=== PATIENT | female | born 1940 | race Caucasian/White ===

== ENCOUNTER 2020-07-22 17:54 | Inpatient (IN) | payer MEDICARE, OTHER ==
[2020-07-22] MEDS ORDERED: Metoprolol Tartrate 5 MG/5 ML SDV IVPUSH ONE ×3 (18:31→19:17)
[2020-07-22] MEDS: Sodium Chloride 0.9% 10 ML Syringe FLUSH PRN ×3 (18:44→19:34)
--- NOTE | 2020-07-22 18:45 | EDM.PDOC ---
ED HPI GENERAL MEDICAL PROBLEM - General Chief Complaint: General Stated Complaint: WEAK,DIZZY Time Seen by Provider: 07/22/20 18:25 Source of Information: Reports: Patient. Denies: Old Records History Limitations: Reports: Other (no old records, not a great historian). Denies: No Limitations - History of Present Illness INITIAL COMMENTS - FREE TEXT/NARRATIVE: 80 yo female here with a complaint of weak and dizzy. Has been feeling this way for about 3 days. No chest pain. Mild SOB and sweating at times. Denies a hx of afib. Is on no meds. Has not seen a doctor in yrs. Here with her from [facility]. Onset: Gradual Onset Date: 07/19/20 Duration: Day(s): (3), Constant Location: Reports: Generalized Quality: Reports: Other (no pain reported) Severity: Moderate Improves with: Reports: Rest Worsens with: Reports: Other (exertion) Context: Reports: Other (See HPI) Associated Symptoms: Reports: Diaphoresis (at times), Malaise, Shortness of Breath (at times), Weakness (generalized). 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 ED ROS GENERAL - Review of Systems Review Of Systems: See Below Constitutional: Reports: Malaise, Weakness, Diaphoresis (at times) HEENT: Reports: No Symptoms Respiratory: Reports: Shortness of Breath (at times). Denies: Wheezing, Pleuritic Chest Pain, Cough, Sputum, Hemoptysis Cardiovascular: Reports: Palpitations GI/Abdominal: Reports: No Symptoms : Reports: No Symptoms Musculoskeletal: Reports: No Symptoms Skin: Reports: No Symptoms Neurological: Reports: No Symptoms Psychiatric: Reports: No Symptoms ED EXAM, GENERAL - Physical Exam Exam: See Below Exam Limited By: No Limitations General Appearance: Alert, WD/WN, Mild Distress, Obese Eye Exam: Bilateral Eye: Normal Inspection Ears: Normal External Exam, Normal Canal, Hearing Grossly Normal Ear Exam: Bilateral Ear: Auricle Normal, Canal Normal Nose: Normal Inspection, No Blood Throat/Mouth: Normal Inspection, Normal Lips, Normal Oropharynx, Normal Voice, No Airway Compromise Head: Atraumatic, Normocephalic Neck: Normal Inspection Respiratory/Chest: No Respiratory Distress, Lungs Clear, Normal Breath Sounds, No Accessory Muscle Use Cardiovascular: No Edema, Tachycardia, Irregularly Irregular GI/Abdominal: Normal Bowel Sounds, Soft, Non-Tender, No Distention, Other (obese) Back Exam: Normal Inspection. No: CVA Tenderness (R), CVA Tenderness (L) Extremities: Normal Inspection, Normal Range of Motion, Non-Tender, No Pedal Edema. No: Pedal Edema Neurological: Alert, Oriented, CN II-XII Intact, Normal Cognition, No Motor/Sensory Deficits Psychiatric: Normal Affect, Normal Mood Skin Exam: Warm, Dry, Intact, Normal Color, No Rash #1 Interpretation EKG Date: 07/22/20 Time: 18:30 Rhythm: A-Fib Rate (Beats/Min): 148 [place]: Normal P-Wave: Absent QRS: Wide ST-T: Depressed QT: Normal Comparison: NA - No Prior EKG Course - Vital Signs Text/Narrative:: Dr. Jason called @ 1935h Last Recorded V/S: Last Vital Signs Temp 36.0 C L 07/22/20 18:20 Pulse 127 H 07/22/20 19:34 Resp 20 07/22/20 19:05 BP 105/61 07/22/20 19:34 Pulse Ox 94 L 07/22/20 19:05 - Orders/Labs/Meds Orders: Active Orders 24 hr Category Date Time Status Cardiac Monitoring [RC] .As Directed Care 07/22/20 18:22 Active EKG Documentation Completion [RC] ASDIRECTED Care 07/22/20 18:23 Active Oxygen Therapy Adult [Oxygen Therapy, ED] [RC] Care 07/22/20 18:39 Active ASDIRECTED Chest 1V Frontal [CR] Stat Exams 07/22/20 18:41 Ordered CRP [C-REACTIVE PROTEIN] [CHEM] Stat Lab 07/22/20 19:36 Ordered UA W/MICROSCOPIC [URIN] Stat Lab 07/22/20 18:23 Ordered Sodium Chloride 0.9% [Normal Saline] 1,000 ml Med 07/22/20 19:30 Active IV ASDIRECTED Sodium Chloride 0.9% [Saline Flush] Med 07/22/20 18:23 Active 10 ml FLUSH ASDIRECTED PRN Saline Lock Insert [OM.PC] Routine Oth 07/22/20 18:23 Ordered EKG 12 Lead [EK] Routine Ther 07/22/20 18:23 Ordered Medication Orders Sodium Chloride (Normal Saline) 1,000 mls @ 250 mls/hr IV ASDIRECTED LEON Sodium Chloride (Sodium Chloride 0.9% 10 Ml Syringe) 10 ml FLUSH ASDIRECTED PRN PRN Reason: Keep Vein Open Last Admin: 07/22/20 19:18 Dose: 10 ml Documented by: Admin: 07/22/20 18:44 Dose: 10 ml Documented by: [email or web address] Labs: Laboratory Tests 07/22/20 07/22/20 07/22/20 Range/Units 18:45 18:45 18:45 WBC 16.0 H (4.5-11.0) K/uL RBC 4.99 (3.30-5.50) M/uL Hgb 14.9 (12.0-15.0) g/dL Hct 47.8 (36.0-48.0) % MCV 96 (80-98) fL MCH 30 (27-31) pg MCHC 31 L (32-36) % Plt Count 157 (150-400) K/uL D-Dimer, Quantitative (0.0-500.0) ng/mL Sodium 139 L (140-148) mmol/L Potassium 5.1 (3.6-5.2) mmol/L Chloride 101 (100-108) mmol/L Carbon Dioxide 20 L (21-32) mmol/L Anion Gap 23.1 H (5.0-14.0) mmol/L BUN 49 H (7-18) mg/dL Creatinine 1.5 H (0.6-1.0) mg/dL Est Cr Clr Drug Dosing 24.33 mL/min Estimated GFR (MDRD) 33 L (>60) Glucose 247 H (74-106) mg/dL Calcium 9.4 (8.5-10.1) mg/dL Troponin I 0.060 H* (0.000-0.056) ng/mL TSH, Ultra Sensitive 2.801 (0.358-3.740) uIU/mL 07/22/20 Range/Units 18:45 WBC (4.5-11.0) K/uL RBC (3.30-5.50) M/uL Hgb (12.0-15.0) g/dL Hct (36.0-48.0) % MCV (80-98) fL MCH (27-31) pg MCHC (32-36) % Plt Count (150-400) K/uL D-Dimer, Quantitative 6032.11 H (0.0-500.0) ng/mL Sodium (140-148) mmol/L Potassium (3.6-5.2) mmol/L Chloride (100-108) mmol/L Carbon Dioxide (21-32) mmol/L Anion Gap (5.0-14.0) mmol/L BUN (7-18) mg/dL Creatinine (0.6-1.0) mg/dL Est Cr Clr Drug Dosing mL/min Estimated GFR (MDRD) (>60) Glucose (74-106) mg/dL Calcium (8.5-10.1) mg/dL Troponin I (0.000-0.056) ng/mL TSH, Ultra Sensitive (0.358-3.740) uIU/mL Meds: Medications Generic Name Dose Route Start Last Admin Trade Name Freq PRN Reason Stop Dose Admin Sodium Chloride 1,000 mls @ 250 mls/hr 07/22/20 19:30 Normal Saline IV ASDIRECTED LEON Sodium Chloride 10 ml 07/22/20 18:23 07/22/20 19:34 Sodium Chloride 0.9% 10 Ml Syringe FLUSH 10 ml ASDIRECTED PRN Administration Keep Vein Open Discontinued Medications Generic Name Dose Route Start Last Admin Trade Name Freq PRN Reason Stop Dose Admin Aspirin 324 mg 07/22/20 18:48 07/22/20 18:58 Aspirin 81 Mg Tab.Chew PO 07/22/20 18:49 324 mg ONETIME ONE Administration Metoprolol Tartrate 5 mg 07/22/20 18:31 07/22/20 18:45 Metoprolol Tartrate 5 Mg/5 Ml Sdv IVPUSH 07/22/20 18:32 5 mg ONETIME ONE Administration Metoprolol Tartrate 5 mg 07/22/20 19:07 07/22/20 19:18 Metoprolol Tartrate 5 Mg/5 Ml Sdv IVPUSH 07/22/20 19:08 5 mg ONETIME ONE Administration Metoprolol Tartrate 50 mg 07/22/20 19:07 07/22/20 19:12 Metoprolol Tartrate 50 Mg Tab PO 07/22/20 19:08 50 mg ONETIME ONE Administration Metoprolol Tartrate 5 mg 07/22/20 19:17 07/22/20 19:34 Metoprolol Tartrate 5 Mg/5 Ml Sdv IVPUSH 07/22/20 19:18 5 mg ONETIME ONE Administration - Radiology Interpretation Free Text/Narrative:: CXR-neg Departure - Departure Time of Disposition: 19:50 Disposition: Admitted As Inpatient 65 Condition: Fair Clinical Impression: Atrial fibrillation with RVR, Elevated blood sugar Obesity Qualifiers: Obesity type: due to excess calories Obesity classification: adult class 3 (BMI >= 40) Serious obesity comorbidity presence: unspecified whether serious comorbidity present Body mass index: BMI 50.0-59.9 Qualified Code(s): E66.01 - Morbid (severe) obesity due to excess calories; Z68.43 - Body mass index [BMI] 50.0-59.9, adult CRF (chronic renal failure) Qualifiers: Chronic kidney disease stage: stage 3 (moderate) Chronic kidney disease stage 3 subtype: stage 3b (GFR 30-44) Qualified Code(s): N18.32 - Chronic kidney disease, stage 3b - Discharge Information *PRESCRIPTION DRUG MONITORING PROGRAM REVIEWED*: Not Applicable *COPY OF PRESCRIPTION DRUG MONITORING REPORT IN PATIENT NABEEL: Not Applicable Referrals: Dandre Vieira MD [Primary Care Provider] - Forms: ED Department Discharge Sepsis Event Note (ED) - Focused Exam Vital Signs: Vital Signs Temp Pulse Pulse Resp BP BP Pulse Ox 07/22/20 19:34 127 H 105/61 07/22/20 19:18 130 H 121/86 07/22/20 19:12 136 H 115/78 07/22/20 19:05 131 H 20 115/78 94 L 07/22/20 18:58 07/22/20 18:55 132 H 19 115/78 07/22/20 18:48 75 19 167/95 H 89 L 07/22/20 18:45 59 L 146 H 15 177/87 H 177/87 H 94 L 07/22/20 18:20 36.0 C L 136 H 16 164/85 H 92 L Pulse Ox 07/22/20 19:34 07/22/20 19:18 07/22/20 19:12 07/22/20 19:05 07/22/20 18:58 95 07/22/20 18:55 07/22/20 18:48 07/22/20 18:45 07/22/20 18:20 - My Orders Last 24 Hours: My Active Orders 07/22/20 18:22 Cardiac Monitoring [RC] .As Directed 07/22/20 18:23 EKG Documentation Completion [RC] ASDIRECTED UA W/MICROSCOPIC [URIN] Stat Sodium Chloride 0.9% [Saline Flush] 10 ml FLUSH ASDIRECTED PRN Saline Lock Insert [OM.PC] Routine EKG 12 Lead [EK] Routine 07/22/20 18:39 Oxygen Therapy Adult [Oxygen Therapy, ED] [RC] ASDIRECTED 07/22/20 18:41 Chest 1V Frontal [CR] Stat 07/22/20 19:30 Sodium Chloride 0.9% [Normal Saline] 1,000 ml IV ASDIRECTED 07/22/20 19:36 CRP [C-REACTIVE PROTEIN] [CHEM] Stat - Assessment/Plan Last 24 Hours: My Active Orders 07/22/20 18:22 Cardiac Monitoring [RC] .As Directed 07/22/20 18:23 EKG Documentation Completion [RC] ASDIRECTED UA W/MICROSCOPIC [URIN] Stat Sodium Chloride 0.9% [Saline Flush] 10 ml FLUSH ASDIRECTED PRN Saline Lock Insert [OM.PC] Routine EKG 12 Lead [EK] Routine 07/22/20 18:39 Oxygen Therapy Adult [Oxygen Therapy, ED] [RC] ASDIRECTED 07/22/20 18:41 Chest 1V Frontal [CR] Stat 07/22/20 19:30 Sodium Chloride 0.9% [Normal Saline] 1,000 ml IV ASDIRECTED 07/22/20 19:36 CRP [C-REACTIVE PROTEIN] [CHEM] Stat
[2020-07-22] MEDS ORDERED: Aspirin 81 MG Tab.Chew PO ONE (18:48)
[2020-07-22] MEDS ORDERED: Metoprolol Tartrate 50 MG Tab PO ONE (19:07)
[2020-07-22] MEDS ORDERED: Sodium Chloride 0.9% 1,000 ML IV SCH ×2 (19:30→21:24)
--- NOTE | 2020-07-22 19:49 | PCM.HP.2 ---
H&P History of Present Illness - General Date of Service: 07/22/20 Admit Problem/Dx: Admission Diagnosis/Problem Admission Diagnosis/Problem Atrial fibrillation with rapid ventricular response Source of Information: Patient, Family, Provider, RN Notes Reviewed History Limitations: Reports: No Limitations - History of Present Illness Initial Comments - Free Text/Narative: Ms. Stern is an 80-year-old woman who was admitted through the emergency department with weakness and lightheadedness secondary to atrial fibrillation with rapid ventricular response. She reports that she has not felt well over the past week and during that period of time has become progressively more weak with associated anorexia and some nausea. She has had no fevers chills or sweats. Denies any other symptoms of localized infection. Because of progressive symptoms she reported to the emergency department today and was found to be in atrial fibrillation with rapid ventricular response. She has received IV and oral metoprolol with some slowing of her heart rate, but she remains in atrial fibrillation. [place] any prior history of cardiac disease and really has not had much in the way of medical care for the past several years. Creatinine is mildly elevated and she is also noted to have a modest elevation in troponin level. 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 Social & Family History - Tobacco Use Tobacco Use Status *Q: Never Tobacco User - Caffeine Use Caffeine Use: Reports: Coffee - Recreational Drug Use Recreational Drug Use: No H&P Review of Systems - Review of Systems: Review Of Systems: See Below General: Reports: Malaise, Weakness, Fatigue, Decreased Appetite HEENT: Reports: No Symptoms Pulmonary: Reports: No Symptoms Cardiovascular: Reports: Lightheadedness. Denies: Chest Pain, Dyspnea on Exertion, Orthopnea, PND, Edema Gastrointestinal: Reports: No Symptoms Genitourinary: Reports: No Symptoms Musculoskeletal: Reports: No Symptoms Skin: Reports: No Symptoms Psychiatric: Reports: No Symptoms Neurological: Reports: No Symptoms Hematologic/Lymphatic: Reports: No Symptoms Immunologic: Reports: No Symptoms Exam - Exam Exam: See Below - Vital Signs Vital Signs: Last Vital Signs Temp 96.8 F L 07/22/20 18:20 Pulse 127 H 07/22/20 19:34 Resp 20 07/22/20 19:05 BP 105/61 07/22/20 19:34 Pulse Ox 94 L 07/22/20 19:05 Weight: 330 lb - Exam Quality Assessment: DVT Prophylaxis General: Alert, Oriented, Cooperative, Mild Distress HEENT: Conjunctiva Clear, Hearing Intact, Mucosa Moist & [place], Normal Nasal Septum, Posterior Pharynx Clear, Pupils Equal Neck: Supple, Trachea Midline, +2 Carotid Pulse wo Bruit Lungs: Clear to Auscultation, Normal Respiratory Effort Cardiovascular: Normal S1, Normal S2, Irregular Rhythm, Tachycardia, Other. No: Systolic Murmur, Diastolic Murmur GI/Abdominal Exam: Soft, Non-Tender, No Organomegaly Back Exam: Normal Inspection, Full Range of Motion Extremities: Non-Tender, Pedal Edema Skin: Warm, Dry, Intact Neurological: Cranial Nerves Intact, Strength Equal Bilateral, Normal Speech, Normal Tone, Sensation Intact. No: Focal Deficit Neuro Extensive - Mental Status: Alert, Oriented x3, Normal Mood/Affect, Normal Cognition, Memory Intact - Patient Data Lab Results Last 24 hrs: Laboratory Results - last 24 hr 07/22/20 07/22/20 07/22/20 Range/Units 18:45 18:45 18:45 WBC 16.0 H (4.5-11.0) K/uL RBC 4.99 (3.30-5.50) M/uL Hgb 14.9 (12.0-15.0) g/dL Hct 47.8 (36.0-48.0) % MCV 96 (80-98) fL MCH 30 (27-31) pg MCHC 31 L (32-36) % Plt Count 157 (150-400) K/uL D-Dimer, Quantitative (0.0-500.0) ng/mL Sodium 139 L (140-148) mmol/L Potassium 5.1 (3.6-5.2) mmol/L Chloride 101 (100-108) mmol/L Carbon Dioxide 20 L (21-32) mmol/L Anion Gap 23.1 H (5.0-14.0) mmol/L BUN 49 H (7-18) mg/dL Creatinine 1.5 H (0.6-1.0) mg/dL Est Cr Clr Drug Dosing 24.33 mL/min Estimated GFR (MDRD) 33 L (>60) Glucose 247 H (74-106) mg/dL Calcium 9.4 (8.5-10.1) mg/dL Troponin I 0.060 H* (0.000-0.056) ng/mL C-Reactive Protein (0.0-0.3) mg/dL TSH, Ultra Sensitive 2.801 (0.358-3.740) uIU/mL 07/22/20 07/22/20 Range/Units 18:45 18:45 WBC (4.5-11.0) K/uL RBC (3.30-5.50) M/uL Hgb (12.0-15.0) g/dL Hct (36.0-48.0) % MCV (80-98) fL MCH (27-31) pg MCHC (32-36) % Plt Count (150-400) K/uL D-Dimer, Quantitative 6032.11 H (0.0-500.0) ng/mL Sodium (140-148) mmol/L Potassium (3.6-5.2) mmol/L Chloride (100-108) mmol/L Carbon Dioxide (21-32) mmol/L Anion Gap (5.0-14.0) mmol/L BUN (7-18) mg/dL Creatinine (0.6-1.0) mg/dL Est Cr Clr Drug Dosing mL/min Estimated GFR (MDRD) (>60) Glucose (74-106) mg/dL Calcium (8.5-10.1) mg/dL Troponin I (0.000-0.056) ng/mL C-Reactive Protein 7.04 H (0.0-0.3) mg/dL TSH, Ultra Sensitive (0.358-3.740) uIU/mL Result Diagrams: 07/22/20 18:45 07/22/20 18:45 Sepsis Event Note - Evaluation Sepsis Screening Result: No Definite Risk - Focused Exam Vital Signs: Vital Signs Temp Pulse Pulse Resp BP BP Pulse Ox 07/22/20 19:34 127 H 105/61 07/22/20 19:18 130 H 121/86 07/22/20 19:12 136 H 115/78 07/22/20 19:05 131 H 20 115/78 94 L 07/22/20 18:58 07/22/20 18:55 132 H 19 115/78 07/22/20 18:48 75 19 167/95 H 89 L 07/22/20 18:45 59 L 146 H 15 177/87 H 177/87 H 94 L 07/22/20 18:20 96.8 F L 136 H 16 164/85 H 92 L Pulse Ox 07/22/20 19:34 07/22/20 19:18 07/22/20 19:12 07/22/20 19:05 07/22/20 18:58 95 07/22/20 18:55 07/22/20 18:48 07/22/20 18:45 07/22/20 18:20 *Q Meaningful Use (ADM) - VTE Risk Assess *Q Each Risk Factor Represents 1 Point: Obesity ( BMI > 25 kg/m2) Total Score 1 Point Risk Factors: 1 Each Risk Factor Represents 2 Points: None Total Score 2 Point Risk Factors: 0 Each Risk Factor Represents 3 Points: Age 75 Years or Greater Total Score 3 Point Risk Factors: 3 Each Risk Factor Represents 5 Points: None Total Score 5 Point Risk Factors: 0 Venous Thromboembolism Risk Factor Score *Q: 4 Problem List Initiated/Reviewed/Updated: Yes Orders Last 24hrs: Active Orders 24 hr Category Date Time Status Patient Status Manage Transfer [TRANSFER] Routine ADT 07/22/20 19:43 Ordered Cardiac Monitoring [RC] .As Directed Care 07/22/20 18:22 Active EKG Documentation Completion [RC] ASDIRECTED Care 07/22/20 18:23 Active Oxygen Therapy Adult [Oxygen Therapy, ED] [RC] Care 07/22/20 18:39 Active ASDIRECTED Chest 1V Frontal [CR] Stat Exams 07/22/20 18:41 Taken UA W/MICROSCOPIC [URIN] Stat Lab 07/22/20 18:23 Ordered Sodium Chloride 0.9% [Normal Saline] 1,000 ml Med 07/22/20 19:30 Active IV ASDIRECTED Sodium Chloride 0.9% [Saline Flush] Med 07/22/20 18:23 Active 10 ml FLUSH ASDIRECTED PRN Saline Lock Insert [OM.PC] Routine Oth 07/22/20 18:23 Ordered Resuscitation Status Routine Resus Stat 07/22/20 19:45 Ordered EKG 12 Lead [EK] Routine Ther 07/22/20 18:23 Ordered Medication Orders Sodium Chloride (Normal Saline) 1,000 mls @ 250 mls/hr IV ASDIRECTED LEON Last Admin: 07/22/20 19:49 Dose: 250 mls/hr Documented by: MARU Sodium Chloride (Sodium Chloride 0.9% 10 Ml Syringe) 10 ml FLUSH ASDIRECTED PRN PRN Reason: Keep Vein Open Last Admin: 07/22/20 19:34 Dose: 10 ml Documented by: Admin: 07/22/20 19:18 Dose: 10 ml Documented by: Admin: 07/22/20 18:44 Dose: 10 ml Documented by: [email or web address] Assessment/Plan Comment:: ASSESSMENT AND PLAN ATRIAL FIBRILLATION WITH RAPID VENTRICULAR RESPONSE-likely present several days. No indication of underlying factors except for elevated D-dimer. Denies prior history of cardiac disease. -Echocardiogram inpatient versus outpatient depending on availability. Calculated [id number] score of 3 -Metoprolol 25 mg p.o. every 6 hours, reassess in a.m. -Further discuss anticoagulation in a.m. -CT angiogram of the chest after hydration ELEVATED TROPONIN-likely demand ischemia in the setting of rapid heart rate for several days -Serial troponin levels ELEVATED CREATININE-Baseline creatinine unknown, likely that at least some of this elevation is secondary to dehydration and intravascular volume depletion. With recent history of decreased oral intake. -IV fluids for hydration -Closely monitor urine output and renal function MAINTENANCE ISSUES -DVT prophylaxis; Lovenox 40 mg subcu daily -GI prophylaxis; not indicated -Landin catheter; not indicated -Nutrition; regular diet -Nicotine dependence; not required CODE STATUS-FULL CODE ADMISSION STATUS-patient will be admitted to inpatient status, expect at least a 2 night hospital stay for evaluation and management of problems as outlined above. At the time of this admission I do not reasonably expected evaluation and management of this problem will require more than a 96 hour hospital stay. DISPOSITION-anticipate discharge to home after the hospital stay. PRIMARY CARE PROVIDER-Dr. Vieira - Mortality Measure Prognosis:: Good
[2020-07-22] MEDS ORDERED: Ondansetron 4 MG/2 ML SDV IV PRN (21:24)
[2020-07-22] MEDS ORDERED: Sodium Chloride 0.9% 10 ML Syringe FLUSH PRN (21:24)
[2020-07-22] MEDS ORDERED: Polyethylene Glycol 3350 Powder 17 GM Packet PO PRN (21:24)
[2020-07-22] MEDS ORDERED: Enoxaparin 30 MG/0.3 ML Syringe SUBCUT SCH (21:24)
[2020-07-22] MEDS ORDERED: Acetaminophen 325 MG Tab PO PRN (21:24)
[2020-07-22] MEDS ORDERED: Dimethicone 20%/Zinc Oxide 25% 56 GM Spray Bottle TOP PRN (23:38)
[2020-07-23] MEDS ORDERED: Metoprolol Tartrate 25 MG Tab PO SCH ×2 (01:00→08:00)
[2020-07-23] MEDS: Sodium Chloride 0.9% 1,000 ML IV SCH ×2 (01:12→09:27)
--- NOTE | 2020-07-23 09:05 | CR ---
CHEST: Portable 07/22/2020 at 7:36 PM CLINICAL HISTORY:Tachycardia, SOB COMPARISON:None FINDINGS: The heart is enlarged. Pulmonary vascularity is normal. No infiltrate effusion or pneumothorax is seen. Impression: Mild cardiomegaly No acute cardiopulmonary process
--- NOTE | 2020-07-23 09:38 | PCM.PN ---
- General Info Date of Service: 07/23/20 Subjective Update: Ms. Stern has experienced improvement since admission. She reports energy level is improved and appetite seems to be somewhat better. Heart rate has come down but is not yet within desired range with current management. Functional Status: Reports: Tolerating Diet, Urinating - Review of Systems General: Reports: Weakness, Fatigue. Denies: Fever, Chills Pulmonary: Reports: No Symptoms Cardiovascular: Reports: No Symptoms Gastrointestinal: Reports: No Symptoms - Patient Data Vitals - Most Recent: Last Vital Signs Temp 97 F 07/23/20 08:00 Pulse 99 07/23/20 08:00 Resp 17 07/23/20 08:00 BP 131/72 07/23/20 08:00 Pulse Ox 97 07/23/20 08:00 Weight - Most Recent: 244 lb I&O - Last 24 Hours: Intake & Output 07/22/20 07/23/20 07/23/20 22:59 06:59 14:59 Intake Total 2261 180 Balance 2261 180 Lab Results Last 24 Hours: Laboratory Results - last 24 hr 07/22/20 07/22/20 07/22/20 Range/Units 18:45 18:45 18:45 WBC 16.0 H (4.5-11.0) K/uL RBC 4.99 (3.30-5.50) M/uL Hgb 14.9 (12.0-15.0) g/dL Hct 47.8 (36.0-48.0) % MCV 96 (80-98) fL MCH 30 (27-31) pg MCHC 31 L (32-36) % Plt Count 157 (150-400) K/uL Neut % (Auto) (36-66) % Lymph % (Auto) (24-44) % [place] % (Auto) (2-6) % Eos % (Auto) (2-4) % Baso % (Auto) (0-1) % D-Dimer, Quantitative (0.0-500.0) ng/mL Sodium 139 L (140-148) mmol/L Potassium 5.1 (3.6-5.2) mmol/L Chloride 101 (100-108) mmol/L Carbon Dioxide 20 L (21-32) mmol/L Anion Gap 23.1 H (5.0-14.0) mmol/L BUN 49 H (7-18) mg/dL Creatinine 1.5 H (0.6-1.0) mg/dL Est Cr Clr Drug Dosing 24.33 mL/min Estimated GFR (MDRD) 33 L (>60) Glucose 247 H (74-106) mg/dL Calcium 9.4 (8.5-10.1) mg/dL Magnesium (1.8-2.4) mg/dL Troponin I 0.060 H* (0.000-0.056) ng/mL C-Reactive Protein (0.0-0.3) mg/dL TSH, Ultra Sensitive 2.801 (0.358-3.740) uIU/mL 07/22/20 07/22/20 07/22/20 Range/Units 18:45 18:45 23:03 WBC (4.5-11.0) K/uL RBC (3.30-5.50) M/uL Hgb (12.0-15.0) g/dL Hct (36.0-48.0) % MCV (80-98) fL MCH (27-31) pg MCHC (32-36) % Plt Count (150-400) K/uL Neut % (Auto) (36-66) % Lymph % (Auto) (24-44) % [place] % (Auto) (2-6) % Eos % (Auto) (2-4) % Baso % (Auto) (0-1) % D-Dimer, Quantitative 6032.11 H (0.0-500.0) ng/mL Sodium (140-148) mmol/L Potassium (3.6-5.2) mmol/L Chloride (100-108) mmol/L Carbon Dioxide (21-32) mmol/L Anion Gap (5.0-14.0) mmol/L BUN (7-18) mg/dL Creatinine (0.6-1.0) mg/dL Est Cr Clr Drug Dosing mL/min Estimated GFR (MDRD) (>60) Glucose (74-106) mg/dL Calcium (8.5-10.1) mg/dL Magnesium (1.8-2.4) mg/dL Troponin I 0.063 H* (0.000-0.056) ng/mL C-Reactive Protein 7.04 H (0.0-0.3) mg/dL TSH, Ultra Sensitive (0.358-3.740) uIU/mL 07/23/20 07/23/20 Range/Units 05:53 05:53 WBC 14.2 H (4.5-11.0) K/uL RBC 4.70 (3.30-5.50) M/uL Hgb 14.2 (12.0-15.0) g/dL Hct 45.2 (36.0-48.0) % MCV 96 (80-98) fL MCH 30 (27-31) pg MCHC 31 L (32-36) % Plt Count 140 L (150-400) K/uL Neut % (Auto) 74 H (36-66) % Lymph % (Auto) 14 L (24-44) % [place] % (Auto) 11 H (2-6) % Eos % (Auto) 1 L (2-4) % Baso % (Auto) 0 (0-1) % D-Dimer, Quantitative (0.0-500.0) ng/mL Sodium 139 L (140-148) mmol/L Potassium 5.4 H (3.6-5.2) mmol/L Chloride 105 (100-108) mmol/L Carbon Dioxide 21 (21-32) mmol/L Anion Gap 18.4 H (5.0-14.0) mmol/L BUN 51 H (7-18) mg/dL Creatinine 1.5 H (0.6-1.0) mg/dL Est Cr Clr Drug Dosing 25.93 mL/min Estimated GFR (MDRD) 33 L (>60) Glucose 201 H (74-106) mg/dL Calcium 9.3 (8.5-10.1) mg/dL Magnesium 2.4 (1.8-2.4) mg/dL Troponin I 0.066 H* (0.000-0.056) ng/mL C-Reactive Protein (0.0-0.3) mg/dL TSH, Ultra Sensitive (0.358-3.740) uIU/mL Med Orders - Current: Current Medications Acetaminophen (Acetaminophen 325 Mg Tab) 650 mg PO Q4H PRN PRN Reason: Pain (Mild 1-3)/fever Last Admin: 07/22/20 22:20 Dose: 650 mg Documented by: Diltiazem HCl (Diltiazem Ir 30 Mg Tab) 30 mg PO Q6HR [facility] Dimethicone/Zinc Oxide (Dimethicone 20%/Zinc Oxide 25% 56 Gm [place] Bottle) 1 gm TOP ASDIRECTED PRN PRN Reason: Rash Last Admin: 07/23/20 02:52 Dose: 1 applic Documented by: Enoxaparin Sodium (Enoxaparin 30 Mg/0.3 Ml Syringe) 30 mg SUBCUT BEDTIME [facility] Metoprolol Succinate (Metoprolol Succinate 50 Mg Tab.Er) 100 mg PO DAILY [facility] Ondansetron HCl (Ondansetron 4 Mg/2 Ml Sdv) 4 mg IV Q4H PRN PRN Reason: Nausea/Vomiting Polyethylene Glycol (Polyethylene Glycol 3350 Powder 17 Gm Packet) 17 gm PO DAILY PRN PRN Reason: Constipation Sodium Chloride (Sodium Chloride 0.9% 10 Ml Syringe) 10 ml FLUSH ASDIRECTED PRN PRN Reason: Keep Vein Open Sodium Polystyrene Sulfonate (Sodium Polystyrene Sulfonate 15 Gm/60 Ml Susp 60 Ml Bot) 15 gm PO ONETIME ONE Stop: 07/23/20 09:46 Warfarin Sodium (Warfarin 5 Mg Tab) 5 mg PO ONETIME ONE Stop: 07/23/20 10:01 Discontinued Medications Aspirin (Aspirin 81 Mg Tab.Chew) 324 mg PO ONETIME ONE Stop: 07/22/20 18:49 Last Admin: 07/22/20 18:58 Dose: 324 mg Documented by: Enoxaparin Sodium (Enoxaparin 30 Mg/0.3 Ml Syringe) 30 mg SUBCUT DAILY [facility] Last Admin: 07/22/20 22:21 Dose: 30 mg Documented by: Sodium Chloride (Normal Saline) 1,000 mls @ 250 mls/hr IV ASDIRECTED [facility] Last Admin: 07/22/20 19:49 Dose: 250 mls/hr Documented by: Sodium Chloride (Normal Saline) 1,000 mls @ 125 mls/hr IV ASDIRECTED [facility] Last Admin: 07/23/20 09:27 Dose: 125 mls/hr Documented by: Sodium Chloride (Normal Saline) 1,000 mls @ 100 mls/hr IV ASDIRECTED [facility] Metoprolol Tartrate (Metoprolol Tartrate 5 Mg/5 Ml Sdv) 5 mg IVPUSH ONETIME ONE Stop: 07/22/20 18:32 Last Admin: 07/22/20 18:45 Dose: 5 mg Documented by: Metoprolol Tartrate (Metoprolol Tartrate 5 Mg/5 Ml Sdv) 5 mg IVPUSH ONETIME ONE Stop: 07/22/20 19:08 Last Admin: 07/22/20 19:18 Dose: 5 mg Documented by: Metoprolol Tartrate (Metoprolol Tartrate 50 Mg Tab) 50 mg PO ONETIME ONE Stop: 07/22/20 19:08 Last Admin: 07/22/20 19:12 Dose: 50 mg Documented by: Metoprolol Tartrate (Metoprolol Tartrate 5 Mg/5 Ml Sdv) 5 mg IVPUSH ONETIME ONE Stop: 07/22/20 19:18 Last Admin: 07/22/20 19:34 Dose: 5 mg Documented by: Metoprolol Tartrate (Metoprolol Tartrate 25 Mg Tab) 25 mg PO Q6H [facility] Last Admin: 07/23/20 00:14 Dose: 25 mg Documented by: Metoprolol Tartrate (Metoprolol Tartrate 25 Mg Tab) 25 mg PO Q6H [facility] Sodium Chloride (Sodium Chloride 0.9% 10 Ml Syringe) 10 ml FLUSH ASDIRECTED PRN PRN Reason: Keep Vein Open Last Admin: 07/22/20 19:34 Dose: 10 ml Documented by: - Exam Quality Assessment: DVT Prophylaxis General: Alert, Oriented, Cooperative, No Acute Distress Lungs: Clear to Auscultation, Normal Respiratory Effort Cardiovascular: No Murmurs, Irregular Rhythm, Tachycardia GI/Abdominal Exam: Soft, Non-Tender, No Organomegaly, No Distention Extremities: Non-Tender, Pedal Edema - Patient Data Lab Results Last 24 hrs: Laboratory Results - last 24 hr 07/22/20 07/22/20 07/22/20 Range/Units 18:45 18:45 18:45 WBC 16.0 H (4.5-11.0) K/uL RBC 4.99 (3.30-5.50) M/uL Hgb 14.9 (12.0-15.0) g/dL Hct 47.8 (36.0-48.0) % MCV 96 (80-98) fL MCH 30 (27-31) pg MCHC 31 L (32-36) % Plt Count 157 (150-400) K/uL Neut % (Auto) (36-66) % Lymph % (Auto) (24-44) % [place] % (Auto) (2-6) % Eos % (Auto) (2-4) % Baso % (Auto) (0-1) % D-Dimer, Quantitative (0.0-500.0) ng/mL Sodium 139 L (140-148) mmol/L Potassium 5.1 (3.6-5.2) mmol/L Chloride 101 (100-108) mmol/L Carbon Dioxide 20 L (21-32) mmol/L Anion Gap 23.1 H (5.0-14.0) mmol/L BUN 49 H (7-18) mg/dL Creatinine 1.5 H (0.6-1.0) mg/dL Est Cr Clr Drug Dosing 24.33 mL/min Estimated GFR (MDRD) 33 L (>60) Glucose 247 H (74-106) mg/dL Calcium 9.4 (8.5-10.1) mg/dL Magnesium (1.8-2.4) mg/dL Troponin I 0.060 H* (0.000-0.056) ng/mL C-Reactive Protein (0.0-0.3) mg/dL TSH, Ultra Sensitive 2.801 (0.358-3.740) uIU/mL 07/22/20 07/22/20 07/22/20 Range/Units 18:45 18:45 23:03 WBC (4.5-11.0) K/uL RBC (3.30-5.50) M/uL Hgb (12.0-15.0) g/dL Hct (36.0-48.0) % MCV (80-98) fL MCH (27-31) pg MCHC (32-36) % Plt Count (150-400) K/uL Neut % (Auto) (36-66) % Lymph % (Auto) (24-44) % [place] % (Auto) (2-6) % Eos % (Auto) (2-4) % Baso % (Auto) (0-1) % D-Dimer, Quantitative 6032.11 H (0.0-500.0) ng/mL Sodium (140-148) mmol/L Potassium (3.6-5.2) mmol/L Chloride (100-108) mmol/L Carbon Dioxide (21-32) mmol/L Anion Gap (5.0-14.0) mmol/L BUN (7-18) mg/dL Creatinine (0.6-1.0) mg/dL Est Cr Clr Drug Dosing mL/min Estimated GFR (MDRD) (>60) Glucose (74-106) mg/dL Calcium (8.5-10.1) mg/dL Magnesium (1.8-2.4) mg/dL Troponin I 0.063 H* (0.000-0.056) ng/mL C-Reactive Protein 7.04 H (0.0-0.3) mg/dL TSH, Ultra Sensitive (0.358-3.740) uIU/mL 07/23/20 07/23/20 Range/Units 05:53 05:53 WBC 14.2 H (4.5-11.0) K/uL RBC 4.70 (3.30-5.50) M/uL Hgb 14.2 (12.0-15.0) g/dL Hct 45.2 (36.0-48.0) % MCV 96 (80-98) fL MCH 30 (27-31) pg MCHC 31 L (32-36) % Plt Count 140 L (150-400) K/uL Neut % (Auto) 74 H (36-66) % Lymph % (Auto) 14 L (24-44) % [place] % (Auto) 11 H (2-6) % Eos % (Auto) 1 L (2-4) % Baso % (Auto) 0 (0-1) % D-Dimer, Quantitative (0.0-500.0) ng/mL Sodium 139 L (140-148) mmol/L Potassium 5.4 H (3.6-5.2) mmol/L Chloride 105 (100-108) mmol/L Carbon Dioxide 21 (21-32) mmol/L Anion Gap 18.4 H (5.0-14.0) mmol/L BUN 51 H (7-18) mg/dL Creatinine 1.5 H (0.6-1.0) mg/dL Est Cr Clr Drug Dosing 25.93 mL/min Estimated GFR (MDRD) 33 L (>60) Glucose 201 H (74-106) mg/dL Calcium 9.3 (8.5-10.1) mg/dL Magnesium 2.4 (1.8-2.4) mg/dL Troponin I 0.066 H* (0.000-0.056) ng/mL C-Reactive Protein (0.0-0.3) mg/dL TSH, Ultra Sensitive (0.358-3.740) uIU/mL Result Diagrams: 07/23/20 05:53 07/23/20 05:53 Sepsis Event Note - Evaluation Sepsis Screening Result: Severe Sepsis Risk - Focused Exam Vital Signs: Vital Signs Temp Pulse Pulse Resp BP BP Pulse Ox 07/23/20 08:00 97 F 99 17 131/72 97 07/23/20 06:00 21 H 123/68 98 07/23/20 04:00 18 115/70 100 07/23/20 02:00 18 104/71 98 07/23/20 00:14 89 105/66 07/23/20 00:00 19 94/70 99 07/22/20 23:30 17 102/85 99 07/22/20 22:00 16 122/76 93 L 07/22/20 21:51 97.0 F 17 137/84 97 - Problem List Review Problem List Initiated/Reviewed/Updated: Yes - My Orders Last 24 Hours: My Active Orders 07/22/20 Dinner Regular Diet [DIET] 07/22/20 19:45 Resuscitation Status Routine 07/22/20 21:24 Acetaminophen [TylenoL] 650 mg PO Q4H PRN Ondansetron [Zofran] 4 mg IV Q4H PRN Sodium Chloride 0.9% [Saline Flush] 10 ml FLUSH ASDIRECTED PRN polyethylene glycoL 3350 [MiraLAX] 17 gm PO DAILY PRN 07/22/20 21:24 Patient Status [ADT] Routine Ambulate [RC] QID Cardiac Monitoring [RC] Q6H Height and Weight [RC] DAILY Intake and Output [RC] QSHIFT Notify Provider Vital Signs [RC] ASDIRECTED Oxygen Therapy [RC] PRN Peripheral IV Care [RC] . DIRECTED Up With Assistance [RC] ASDIRECTED Up to Chair [RC] QID VTE/DVT Education [RC] Per Unit Routine Vital Signs [RC] Q2H Peripheral IV Insertion Adult [OM.PC] Routine 07/22/20 23:38 Dimethicone/Zinc Oxide [Rash Relief-Zinc Oxide [place]] 1 gm TOP ASDIRECTED PRN 07/23/20 09:26 INR,PT,PROTHROMBIN TIME [COAG] Stat Warfarin [Coumadin] 5 mg PO ONETIME ONE 07/23/20 09:28 Sodium Polystyrene Sulfonate [Kayexalate] 15 gm PO ONETIME ONE Convert IV to Saline Lock [OM.PC] Routine 07/23/20 09:30 Metoprolol Succinate [Toprol XL] 100 mg PO DAILY 07/23/20 10:00 Diltiazem IR [Cardizem] 30 mg PO Q6HR 07/23/20 21:00 Enoxaparin [Lovenox] 30 mg SUBCUT BEDTIME 07/24/20 05:00 BASIC METABOLIC PANEL,BMP [CHEM] Timed CBC WITH AUTO DIFF [HEME] Timed 07/24/20 05:11 INR,PT,PROTHROMBIN TIME [COAG] AM - Plan Plan:: ASSESSMENT AND PLAN ATRIAL FIBRILLATION WITH RAPID VENTRICULAR RESPONSE-likely present several days. No indication of underlying factors except for elevated D-dimer. Denies prior history of cardiac disease.Calculated [id number] score of 3. Rate has improved with current management, still not yet within desired range -Echocardiogram inpatient versus outpatient depending on availability. -Metoprolol XL 100 mg p.o. daily -Warfarin 5 mg p.o. today -CT angiogram of the chest after improvement in renal function ELEVATED TROPONIN-serial troponin levels stable ELEVATED CREATININE-Baseline creatinine unknown, likely that at least some of this elevation is secondary to dehydration and intravascular volume depletion. With recent history of decreased oral intake. Creatinine stable with hydration, but not significantly improved -Saline lock IV -Closely monitor urine output and renal function HYPERKALEMIA-likely secondary to renal insufficiency -Kayexalate 15 mg p.o. now -Reassess potassium level later today and in a.m. MAINTENANCE ISSUES -DVT prophylaxis; Lovenox 40 mg subcu daily -GI prophylaxis; not indicated -Land[place] catheter; not indicated -Nutrition; regular diet -Nicotine dependence; not required CODE STATUS-FULL CODE ADMISSION STATUS-patient will be admitted to inpatient status, expect at least a 2 night hospital stay for evaluation and management of problems as outlined above. At the time of this admission I do not reasonably expected evaluation and management of this problem will require more than a 96 hour hospital stay. DISPOSITION-anticipate discharge to home after the hospital stay. PRIMARY CARE PROVIDER-Dr. Vieira
[2020-07-23] MEDS ORDERED: Sodium Polystyrene Sulfonate 15 GM/60 ML Susp 60 ML Bot PO ONE (09:45)
[2020-07-23] MEDS: Metoprolol Succinate 50 MG Tab.ER PO SCH (09:54)
[2020-07-23] MEDS: Diltiazem IR 30 MG Tab PO SCH ×3 (09:55→21:05)
[2020-07-23] MEDS ORDERED: Warfarin 5 MG Tab PO ONE (10:00)
[2020-07-23] MEDS ORDERED: Enoxaparin 30 MG/0.3 ML Syringe SUBCUT SCH (21:00)
[2020-07-24] MEDS: Diltiazem IR 30 MG Tab PO SCH (04:16)
[2020-07-24] MEDS: Metoprolol Succinate 50 MG Tab.ER PO SCH (08:56)
[2020-07-24] MEDS: Diltiazem 120 MG Cap.CD PO SCH (08:56)
[2020-07-24] MEDS ORDERED: Warfarin 5 MG Tab PO ONE (09:00)
--- NOTE | 2020-07-24 14:18 | PCM.PN ---
- General Info Date of Service: 07/24/20 Subjective Update: Ms. Stern has been stable over the last 24 hours. She remains in atrial fibrillation, heart rate well controlled on current therapy with metoprolol and diltiazem. She remains fairly weak and requires assistance of 2 for transfers and ambulation. Functional Status: Reports: Tolerating Diet, Urinating - Review of Systems General: Reports: Weakness, Fatigue. Denies: Fever, Chills Pulmonary: Reports: No Symptoms Cardiovascular: Reports: No Symptoms Gastrointestinal: Reports: No Symptoms - Patient Data Vitals - Most Recent: Last Vital Signs Temp 97.1 F 07/24/20 08:00 Pulse 80 07/24/20 12:00 Resp 19 07/24/20 12:00 BP 121/73 07/24/20 12:00 Pulse Ox 20 L 07/24/20 12:00 Weight - Most Recent: 248 lb 4.8 oz I&O - Last 24 Hours: Intake & Output 07/23/20 07/24/20 07/24/20 22:59 06:59 14:59 Intake Total 90 600 650 Output Total 200 425 Balance 90 400 225 Lab Results Last 24 Hours: Laboratory Results - last 24 hr 07/23/20 07/23/20 07/24/20 Range/Units 14:48 17:20 05:15 WBC (4.5-11.0) K/uL RBC (3.30-5.50) M/uL Hgb (12.0-15.0) g/dL Hct (36.0-48.0) % MCV (80-98) fL MCH (27-31) pg MCHC (32-36) % Plt Count (150-400) K/uL Neut % (Auto) (36-66) % Lymph % (Auto) (24-44) % [place] % (Auto) (2-6) % Eos % (Auto) (2-4) % Baso % (Auto) (0-1) % PT 13.3 H (9.5-12.0) sec INR 1.23 H (0.80-1.20) Sodium (140-148) mmol/L Potassium 5.0 (3.6-5.2) mmol/L Chloride (100-108) mmol/L Carbon Dioxide (21-32) mmol/L Anion Gap (5.0-14.0) mmol/L BUN (7-18) mg/dL Creatinine (0.6-1.0) mg/dL Est Cr Clr Drug Dosing mL/min Estimated GFR (MDRD) (>60) Glucose (74-106) mg/dL Calcium (8.5-10.1) mg/dL Urine Color Yellow (YELLOW) Urine Appearance Slightly cloudy A (CLEAR) Urine pH 5.5 (5.0-8.0) Ur Specific [place] 1.025 (1.008-1.030) Urine Protein 100 H (NEGATIVE) mg/dL Urine Glucose (UA) Negative (NEGATIVE) mg/dL Urine Ketones Trace H (NEGATIVE) mg/dL Urine Occult Blood Negative (NEGATIVE) Urine Nitrite Negative (NEGATIVE) Urine Bilirubin Small H (NEGATIVE) Urine Urobilinogen 1.0 (0.2-1.0) EU/dL Ur Leukocyte Esterase Negative (NEGATIVE) Urine RBC 0-5 (0-5) Urine WBC 0-5 (0-5) Ur Epithelial Cells Rare Amorphous Sediment Not seen Urine Bacteria Rare Urine Mucus Rare 07/24/20 07/24/20 Range/Units 05:15 05:15 WBC 15.1 H (4.5-11.0) K/uL RBC 4.53 (3.30-5.50) M/uL Hgb 14.0 (12.0-15.0) g/dL Hct 43.4 (36.0-48.0) % MCV 96 (80-98) fL MCH 31 (27-31) pg MCHC 32 (32-36) % Plt Count 153 (150-400) K/uL Neut % (Auto) 81 H (36-66) % Lymph % (Auto) 9 L (24-44) % [place] % (Auto) 10 H (2-6) % Eos % (Auto) 1 L (2-4) % Baso % (Auto) 0 (0-1) % PT (9.5-12.0) sec INR (0.80-1.20) Sodium 143 (140-148) mmol/L Potassium 4.3 (3.6-5.2) mmol/L Chloride 106 (100-108) mmol/L Carbon Dioxide 21 (21-32) mmol/L Anion Gap 15.6 H (5.0-14.0) mmol/L BUN 45 H (7-18) mg/dL Creatinine 1.2 H (0.6-1.0) mg/dL Est Cr Clr Drug Dosing 32.50 mL/min Estimated GFR (MDRD) 43 L (>60) Glucose 196 H (74-106) mg/dL Calcium 8.8 (8.5-10.1) mg/dL Urine Color (YELLOW) Urine Appearance (CLEAR) Urine pH (5.0-8.0) Ur Specific [place] (1.008-1.030) Urine Protein (NEGATIVE) mg/dL Urine Glucose (UA) (NEGATIVE) mg/dL Urine Ketones (NEGATIVE) mg/dL Urine Occult Blood (NEGATIVE) Urine Nitrite (NEGATIVE) Urine Bilirubin (NEGATIVE) Urine Urobilinogen (0.2-1.0) EU/dL Ur Leukocyte Esterase (NEGATIVE) Urine RBC (0-5) Urine WBC (0-5) Ur Epithelial Cells Amorphous Sediment Urine Bacteria Urine Mucus Med Orders - Current: Current Medications Acetaminophen (Acetaminophen 325 Mg Tab) 650 mg PO Q4H PRN PRN Reason: Pain (Mild 1-3)/fever Last Admin: 07/22/20 22:20 Dose: 650 mg Documented by: Diltiazem HCl (Diltiazem 120 Mg Cap.Cd) 120 mg PO DAILY [facility] Last Admin: 07/24/20 08:56 Dose: 120 mg Documented by: Dimethicone/Zinc Oxide (Dimethicone 20%/Zinc Oxide 25% 56 Gm Veteran Bottle) 1 gm TOP ASDIRECTED PRN PRN Reason: Rash Last Admin: 07/23/20 02:52 Dose: 1 applic Documented by: Enoxaparin Sodium (Enoxaparin 40 Mg/0.4 Ml Syringe) 40 mg SUBCUT BEDTIME [facility] Metoprolol Succinate (Metoprolol Succinate 50 Mg Tab.Er) 100 mg PO DAILY [facility] Last Admin: 07/24/20 08:56 Dose: 100 mg Documented by: Ondansetron HCl (Ondansetron 4 Mg/2 Ml Sdv) 4 mg IV Q4H PRN PRN Reason: Nausea/Vomiting Polyethylene Glycol (Polyethylene Glycol 3350 Powder 17 Gm Packet) 17 gm PO DAILY PRN PRN Reason: Constipation Sodium Chloride (Sodium Chloride 0.9% 10 Ml Syringe) 10 ml FLUSH ASDIRECTED PRN PRN Reason: Keep Vein Open Discontinued Medications Aspirin (Aspirin 81 Mg Tab.Chew) 324 mg PO ONETIME ONE Stop: 07/22/20 18:49 Last Admin: 07/22/20 18:58 Dose: 324 mg Documented by: Diltiazem HCl (Diltiazem Ir 30 Mg Tab) 30 mg PO Q6HR [facility] Last Admin: 07/24/20 04:16 Dose: 30 mg Documented by: Enoxaparin Sodium (Enoxaparin 30 Mg/0.3 Ml Syringe) 30 mg SUBCUT DAILY [facility] Last Admin: 07/22/20 22:21 Dose: 30 mg Documented by: Enoxaparin Sodium (Enoxaparin 30 Mg/0.3 Ml Syringe) 30 mg SUBCUT BEDTIME [facility] Last Admin: 07/23/20 21:05 Dose: 30 mg Documented by: Sodium Chloride (Normal Saline) 1,000 mls @ 250 mls/hr IV ASDIRECTED [facility] Last Admin: 07/22/20 19:49 Dose: 250 mls/hr Documented by: Sodium Chloride (Normal Saline) 1,000 mls @ 125 mls/hr IV ASDIRECTED [facility] Last Admin: 07/23/20 09:27 Dose: 125 mls/hr Documented by: Sodium Chloride (Normal Saline) 1,000 mls @ 100 mls/hr IV ASDIRECTED [facility] Metoprolol Tartrate (Metoprolol Tartrate 5 Mg/5 Ml Sdv) 5 mg IVPUSH ONETIME ONE Stop: 07/22/20 18:32 Last Admin: 07/22/20 18:45 Dose: 5 mg Documented by: Metoprolol Tartrate (Metoprolol Tartrate 5 Mg/5 Ml Sdv) 5 mg IVPUSH ONETIME ONE Stop: 07/22/20 19:08 Last Admin: 07/22/20 19:18 Dose: 5 mg Documented by: Metoprolol Tartrate (Metoprolol Tartrate 50 Mg Tab) 50 mg PO ONETIME ONE Stop: 07/22/20 19:08 Last Admin: 07/22/20 19:12 Dose: 50 mg Documented by: Metoprolol Tartrate (Metoprolol Tartrate 5 Mg/5 Ml Sdv) 5 mg IVPUSH ONETIME ONE Stop: 07/22/20 19:18 Last Admin: 07/22/20 19:34 Dose: 5 mg Documented by: Metoprolol Tartrate (Metoprolol Tartrate 25 Mg Tab) 25 mg PO Q6H [facility] Last Admin: 07/23/20 00:14 Dose: 25 mg Documented by: Metoprolol Tartrate (Metoprolol Tartrate 25 Mg Tab) 25 mg PO Q6H [facility] Last Admin: 07/23/20 15:16 Dose: Not Given Documented by: Sodium Chloride (Sodium Chloride 0.9% 10 Ml Syringe) 10 ml FLUSH ASDIRECTED PRN PRN Reason: Keep Vein Open Last Admin: 07/22/20 19:34 Dose: 10 ml Documented by: Sodium Polystyrene Sulfonate (Sodium Polystyrene Sulfonate 15 Gm/60 Ml Susp 60 Ml Bot) 15 gm PO ONETIME ONE Stop: 07/23/20 09:46 Last Admin: 07/23/20 09:54 Dose: 15 gm Documented by: Warfarin Sodium (Warfarin 5 Mg Tab) 5 mg PO ONETIME ONE Stop: 07/23/20 10:01 Last Admin: 07/23/20 09:55 Dose: 5 mg Documented by: Warfarin Sodium (Warfarin 5 Mg Tab) 5 mg PO ONETIME ONE Stop: 07/24/20 09:01 Last Admin: 07/24/20 08:56 Dose: 5 mg Documented by: - Exam Quality Assessment: DVT Prophylaxis General: Alert, Cooperative, Mild Distress Lungs: Clear to Auscultation, Normal Respiratory Effort Cardiovascular: Regular Rate, No Murmurs, Irregular Rhythm GI/Abdominal Exam: Soft, Non-Tender, No Organomegaly, No Distention Extremities: Non-Tender, No Pedal Edema - Patient Data Lab Results Last 24 hrs: Laboratory Results - last 24 hr 07/23/20 07/23/20 07/24/20 Range/Units 14:48 17:20 05:15 WBC (4.5-11.0) K/uL RBC (3.30-5.50) M/uL Hgb (12.0-15.0) g/dL Hct (36.0-48.0) % MCV (80-98) fL MCH (27-31) pg MCHC (32-36) % Plt Count (150-400) K/uL Neut % (Auto) (36-66) % Lymph % (Auto) (24-44) % [place] % (Auto) (2-6) % Eos % (Auto) (2-4) % Baso % (Auto) (0-1) % PT 13.3 H (9.5-12.0) sec INR 1.23 H (0.80-1.20) Sodium (140-148) mmol/L Potassium 5.0 (3.6-5.2) mmol/L Chloride (100-108) mmol/L Carbon Dioxide (21-32) mmol/L Anion Gap (5.0-14.0) mmol/L BUN (7-18) mg/dL Creatinine (0.6-1.0) mg/dL Est Cr Clr Drug Dosing mL/min Estimated GFR (MDRD) (>60) Glucose (74-106) mg/dL Calcium (8.5-10.1) mg/dL Urine Color Yellow (YELLOW) Urine Appearance Slightly cloudy A (CLEAR) Urine pH 5.5 (5.0-8.0) Ur Specific [place] 1.025 (1.008-1.030) Urine Protein 100 H (NEGATIVE) mg/dL Urine Glucose (UA) Negative (NEGATIVE) mg/dL Urine Ketones Trace H (NEGATIVE) mg/dL Urine Occult Blood Negative (NEGATIVE) Urine Nitrite Negative (NEGATIVE) Urine Bilirubin Small H (NEGATIVE) Urine Urobilinogen 1.0 (0.2-1.0) EU/dL Ur Leukocyte Esterase Negative (NEGATIVE) Urine RBC 0-5 (0-5) Urine WBC 0-5 (0-5) Ur Epithelial Cells Rare Amorphous Sediment Not seen Urine Bacteria Rare Urine Mucus Rare 07/24/20 07/24/20 Range/Units 05:15 05:15 WBC 15.1 H (4.5-11.0) K/uL RBC 4.53 (3.30-5.50) M/uL Hgb 14.0 (12.0-15.0) g/dL Hct 43.4 (36.0-48.0) % MCV 96 (80-98) fL MCH 31 (27-31) pg MCHC 32 (32-36) % Plt Count 153 (150-400) K/uL Neut % (Auto) 81 H (36-66) % Lymph % (Auto) 9 L (24-44) % [place] % (Auto) 10 H (2-6) % Eos % (Auto) 1 L (2-4) % Baso % (Auto) 0 (0-1) % PT (9.5-12.0) sec INR (0.80-1.20) Sodium 143 (140-148) mmol/L Potassium 4.3 (3.6-5.2) mmol/L Chloride 106 (100-108) mmol/L Carbon Dioxide 21 (21-32) mmol/L Anion Gap 15.6 H (5.0-14.0) mmol/L BUN 45 H (7-18) mg/dL Creatinine 1.2 H (0.6-1.0) mg/dL Est Cr Clr Drug Dosing 32.50 mL/min Estimated GFR (MDRD) 43 L (>60) Glucose 196 H (74-106) mg/dL Calcium 8.8 (8.5-10.1) mg/dL Urine Color (YELLOW) Urine Appearance (CLEAR) Urine pH (5.0-8.0) Ur Specific [place] (1.008-1.030) Urine Protein (NEGATIVE) mg/dL Urine Glucose (UA) (NEGATIVE) mg/dL Urine Ketones (NEGATIVE) mg/dL Urine Occult Blood (NEGATIVE) Urine Nitrite (NEGATIVE) Urine Bilirubin (NEGATIVE) Urine Urobilinogen (0.2-1.0) EU/dL Ur Leukocyte Esterase (NEGATIVE) Urine RBC (0-5) Urine WBC (0-5) Ur Epithelial Cells Amorphous Sediment Urine Bacteria Urine Mucus Result Diagrams: 07/24/20 05:15 07/24/20 05:15 Sepsis Event Note - Evaluation Sepsis Screening Result: No Definite Risk - Focused Exam Vital Signs: Vital Signs Temp Pulse Pulse Resp BP BP Pulse Ox 07/24/20 12:00 80 19 121/73 20 L 07/24/20 10:00 87 17 133/87 94 L 07/24/20 08:56 87 134/65 07/24/20 08:00 97.1 F 84 22 H 134/65 94 L 07/24/20 06:00 17 131/56 L 95 07/24/20 04:00 98.0 F 20 128/72 95 - Problem List Review Problem List Initiated/Reviewed/Updated: Yes - My Orders Last 24 Hours: My Active Orders 07/24/20 09:00 Diltiazem [Cardizem CD] 120 mg PO DAILY 07/24/20 09:22 PT Evaluation and Treatment [CONS] Routine 07/24/20 09:28 Echo Comp wo Cont [US] Stat 07/24/20 21:00 Enoxaparin [Lovenox] 40 mg SUBCUT BEDTIME 07/25/20 05:00 BASIC METABOLIC PANEL,BMP [CHEM] Timed CBC WITH AUTO DIFF [HEME] Timed 07/25/20 05:11 INR,PT,PROTHROMBIN TIME [COAG] AM - Plan Plan:: ASSESSMENT AND PLAN ATRIAL FIBRILLATION WITH RAPID VENTRICULAR RESPONSE-Calculated [id number] sco re of 3. Heart rate well controlled on current therapy -Echocardiogram inpatient versus outpatient depending on availability. -Metoprolol XL 100 mg p.o. daily -Diltiazem CD 120 mg daily -Warfarin 5 mg p.o. today ELEVATED TROPONIN-serial troponin levels stable ELEVATED CREATININE-Baseline creatinine unknown, likely that at least some of this elevation is secondary to dehydration and intravascular volume depletion. With recent history of decreased oral intake. Creatinine improved from admis nicole and is likely close to baseline -Saline lock IV -Closely monitor urine output and renal function HYPERKALEMIA-resolved DIASTOLIC CONGESTIVE HEART FAILURE-preliminary echocardiogram report shows grade 3 diastolic heart failure with underlying severe left ventricular hypertrophy, severe , severe AI, severe MS, moderate MR and TR. There is also left atrial enlargement. Left ventricular systolic function appears to be well preserved -Outpatient follow-up with cardiology MAINTENANCE ISSUES -DVT prophylaxis; Lovenox 40 mg subcu daily -GI prophylaxis; not indicated -Landin catheter; not indicated -Nutrition; regular diet -Nicotine dependence; not required CODE STATUS-FULL CODE ADMISSION STATUS-patient will be admitted to inpatient status, expect at least a 2 night hospital stay for evaluation and management of problems as outlined above. At the time of this admission I do not reasonably expected evaluation and management of this problem will require more than a 96 hour hospital stay. DISPOSITION-anticipate discharge to home after the hospital stay. PRIMARY CARE PROVIDER-Dr. Vieira
[2020-07-24] MEDS: Enoxaparin 40 MG/0.4 ML Syringe SUBCUT SCH (21:32)
[2020-07-25] MEDS: Metoprolol Succinate 50 MG Tab.ER PO SCH (08:12)
[2020-07-25] MEDS: Diltiazem 120 MG Cap.CD PO SCH (08:12)
[2020-07-25] MEDS ORDERED: Sodium Chloride 3% 500 ML IV SCH (10:15)
--- NOTE | 2020-07-25 10:52 | CR ---
CHEST: 2 view CLINICAL HISTORY:Elevated white count COMPARISON:Portable 07/22/2020 FINDINGS: Heart is enlarged. There is interval increase in heart size when compared to prior study. There is vascular congestion. The patient has diffuse bilateral infiltrates which is likely pulmonary edema. There are small bilateral pleural effusions. IMPRESSION: Cardiac megaly vascular congestion and pulmonary edema consistent with CHF. There are bilateral pleural effusions. Underlying pneumonic infiltrate would be difficult to exclude.
[2020-07-25] MEDS ORDERED: Furosemide 20 MG/2 ML VIAL IVPUSH ONE ×2 (11:00→12:45)
[2020-07-25] MEDS ORDERED: Warfarin 5 MG Tab PO ONE (12:00)
--- NOTE | 2020-07-25 13:14 | PCM.PN ---
- General Info Date of Service: 07/25/20 Subjective Update: Ms. Stern reports feeling somewhat better today, stronger and less short of breath. Vital signs have remained stable and she has been afebrile. White blood cell count increased from yesterday, no obvious cause for this has been identified. Functional Status: Reports: Tolerating Diet, Urinating - Review of Systems General: Reports: Weakness, Fatigue. Denies: Fever, Chills Pulmonary: Reports: Shortness of Breath. Denies: Pleuritic Chest Pain, Cough, Sputum, Hemoptysis, Wheezing Cardiovascular: Reports: Dyspnea on Exertion. Denies: Chest Pain, Palpitations, Orthopnea, PND, Edema, Lightheadedness Gastrointestinal: Reports: No Symptoms Genitourinary: Reports: No Symptoms - Patient Data Vitals - Most Recent: Last Vital Signs Temp 97.3 F 07/25/20 12:00 Pulse 60 07/25/20 10:00 Resp 14 07/25/20 12:00 BP 121/92 H 07/25/20 12:00 Pulse Ox 93 L 07/25/20 12:00 Weight - Most Recent: 248 lb 4.8 oz I&O - Last 24 Hours: Intake & Output 07/24/20 07/25/20 07/25/20 22:59 06:59 14:59 Intake Total 320 400 Output Total 400 Balance -80 400 Lab Results Last 24 Hours: Laboratory Results - last 24 hr 07/24/20 07/25/20 07/25/20 Range/Units 14:50 05:12 05:12 WBC 17.2 H (4.5-11.0) K/uL RBC 4.70 (3.30-5.50) M/uL Hgb 14.3 (12.0-15.0) g/dL Hct 45.0 (36.0-48.0) % MCV 96 (80-98) fL MCH 30 (27-31) pg MCHC 32 (32-36) % Plt Count 159 (150-400) K/uL Neut % (Auto) 81 H (36-66) % Lymph % (Auto) 9 L (24-44) % [place] % (Auto) 10 H (2-6) % Eos % (Auto) 1 L (2-4) % Baso % (Auto) 0 (0-1) % PT 15.3 H (9.5-12.0) sec INR 1.41 H (0.80-1.20) Sodium (140-148) mmol/L Potassium (3.6-5.2) mmol/L Chloride (100-108) mmol/L Carbon Dioxide (21-32) mmol/L Anion Gap (5.0-14.0) mmol/L BUN (7-18) mg/dL Creatinine (0.6-1.0) mg/dL Est Cr Clr Drug Dosing mL/min Estimated GFR (MDRD) (>60) Glucose (74-106) mg/dL Calcium (8.5-10.1) mg/dL Urine Color (YELLOW) Urine Appearance (CLEAR) Urine pH (5.0-8.0) Ur Specific [place] (1.008-1.030) Urine Protein (NEGATIVE) mg/dL Urine Glucose (UA) (NEGATIVE) mg/dL Urine Ketones (NEGATIVE) mg/dL Urine Occult Blood (NEGATIVE) Urine Nitrite (NEGATIVE) Urine Bilirubin (NEGATIVE) Urine Urobilinogen (0.2-1.0) EU/dL Ur Leukocyte Esterase (NEGATIVE) Urine RBC (0-5) Urine WBC (0-5) Ur Epithelial Cells Amorphous Sediment Urine Bacteria Urine Mucus Urine Other SARS CoV-2 RNA Rapid COURTNEY Negative 07/25/20 07/25/20 Range/Units 05:12 08:12 WBC (4.5-11.0) K/uL RBC (3.30-5.50) M/uL Hgb (12.0-15.0) g/dL Hct (36.0-48.0) % MCV (80-98) fL MCH (27-31) pg MCHC (32-36) % Plt Count (150-400) K/uL Neut % (Auto) (36-66) % Lymph % (Auto) (24-44) % [place] % (Auto) (2-6) % Eos % (Auto) (2-4) % Baso % (Auto) (0-1) % PT (9.5-12.0) sec INR (0.80-1.20) Sodium 144 (140-148) mmol/L Potassium 4.5 (3.6-5.2) mmol/L Chloride 106 (100-108) mmol/L Carbon Dioxide 21 (21-32) mmol/L Anion Gap 17.3 H (5.0-14.0) mmol/L BUN 44 H (7-18) mg/dL Creatinine 1.2 H (0.6-1.0) mg/dL Est Cr Clr Drug Dosing 32.50 mL/min Estimated GFR (MDRD) 43 L (>60) Glucose 224 H (74-106) mg/dL Calcium 8.7 (8.5-10.1) mg/dL Urine Color Yellow (YELLOW) Urine Appearance Cloudy A (CLEAR) Urine pH 5.5 (5.0-8.0) Ur Specific [place] 1.025 (1.008-1.030) Urine Protein 100 H (NEGATIVE) mg/dL Urine Glucose (UA) Negative (NEGATIVE) mg/dL Urine Ketones Negative (NEGATIVE) mg/dL Urine Occult Blood Negative (NEGATIVE) Urine Nitrite Negative (NEGATIVE) Urine Bilirubin Small H (NEGATIVE) Urine Urobilinogen 1.0 (0.2-1.0) EU/dL Ur Leukocyte Esterase Negative (NEGATIVE) Urine RBC 0-5 (0-5) Urine WBC 0-5 (0-5) Ur Epithelial Cells Many Amorphous Sediment Few Urine Bacteria Many Urine Mucus Not seen Urine Other See note SARS CoV-2 RNA Rapid [facility] Med Orders - Current: Current Medications Acetaminophen (Acetaminophen 325 Mg Tab) 650 mg PO Q4H PRN PRN Reason: Pain (Mild 1-3)/fever Last Admin: 07/22/20 22:20 Dose: 650 mg Documented by: Diltiazem HCl (Diltiazem 120 Mg Cap.Cd) 120 mg PO DAILY [facility] Last Admin: 07/25/20 08:12 Dose: 120 mg Documented by: Dimethicone/Zinc Oxide (Dimethicone 20%/Zinc Oxide 25% 56 Gm [place] Bottle) 1 gm TOP ASDIRECTED PRN PRN Reason: Rash Last Admin: 07/23/20 02:52 Dose: 1 applic Documented by: Enoxaparin Sodium (Enoxaparin 40 Mg/0.4 Ml Syringe) 40 mg SUBCUT BEDTIME [facility] Last Admin: 07/24/20 21:32 Dose: 40 mg Documented by: Metoprolol Succinate (Metoprolol Succinate 50 Mg Tab.Er) 100 mg PO DAILY [facility] Last Admin: 07/25/20 08:12 Dose: 100 mg Documented by: Ondansetron HCl (Ondansetron 4 Mg/2 Ml Sdv) 4 mg IV Q4H PRN PRN Reason: Nausea/Vomiting Polyethylene Glycol (Polyethylene Glycol 3350 Powder 17 Gm Packet) 17 gm PO DAILY PRN PRN Reason: Constipation Sodium Chloride (Sodium Chloride 0.9% 10 Ml Syringe) 10 ml FLUSH ASDIRECTED PRN PRN Reason: Keep Vein Open Discontinued Medications Aspirin (Aspirin 81 Mg Tab.Chew) 324 mg PO ONETIME ONE Stop: 07/22/20 18:49 Last Admin: 07/22/20 18:58 Dose: 324 mg Documented by: Diltiazem HCl (Diltiazem Ir 30 Mg Tab) 30 mg PO Q6HR [facility] Last Admin: 07/24/20 04:16 Dose: 30 mg Documented by: Enoxaparin Sodium (Enoxaparin 30 Mg/0.3 Ml Syringe) 30 mg SUBCUT DAILY [facility] Last Admin: 07/22/20 22:21 Dose: 30 mg Documented by: Enoxaparin Sodium (Enoxaparin 30 Mg/0.3 Ml Syringe) 30 mg SUBCUT BEDTIME [facility] Last Admin: 07/23/20 21:05 Dose: 30 mg Documented by: Furosemide (Furosemide 20 Mg/2 Ml Vial) 20 mg IVPUSH NOW ONE Stop: 07/25/20 11:01 Last Admin: 07/25/20 11:56 Dose: 20 mg Documented by: Furosemide (Furosemide 20 Mg/2 Ml Vial) 20 mg IVPUSH NOW ONE Stop: 07/25/20 12:46 Sodium Chloride (Normal Saline) 1,000 mls @ 250 mls/hr IV ASDIRECTED [facility] Last Admin: 07/22/20 19:49 Dose: 250 mls/hr Documented by: Sodium Chloride (Normal Saline) 1,000 mls @ 125 mls/hr IV ASDIRECTED [facility] Last Admin: 07/23/20 09:27 Dose: 125 mls/hr Documented by: Sodium Chloride (Normal Saline) 1,000 mls @ 100 mls/hr IV ASDIRECTED [facility] Metoprolol Tartrate (Metoprolol Tartrate 5 Mg/5 Ml Sdv) 5 mg IVPUSH ONETIME ONE Stop: 07/22/20 18:32 Last Admin: 07/22/20 18:45 Dose: 5 mg Documented by: Metoprolol Tartrate (Metoprolol Tartrate 5 Mg/5 Ml Sdv) 5 mg IVPUSH ONETIME ONE Stop: 07/22/20 19:08 Last Admin: 07/22/20 19:18 Dose: 5 mg Documented by: Metoprolol Tartrate (Metoprolol Tartrate 50 Mg Tab) 50 mg PO ONETIME ONE Stop: 07/22/20 19:08 Last Admin: 07/22/20 19:12 Dose: 50 mg Documented by: Metoprolol Tartrate (Metoprolol Tartrate 5 Mg/5 Ml Sdv) 5 mg IVPUSH ONETIME ONE Stop: 07/22/20 19:18 Last Admin: 07/22/20 19:34 Dose: 5 mg Documented by: Metoprolol Tartrate (Metoprolol Tartrate 25 Mg Tab) 25 mg PO Q6H [facility] Last Admin: 07/23/20 00:14 Dose: 25 mg Documented by: Metoprolol Tartrate (Metoprolol Tartrate 25 Mg Tab) 25 mg PO Q6H [facility] Last Admin: 07/23/20 15:16 Dose: Not Given Documented by: Sodium Chloride (Sodium Chloride 0.9% 10 Ml Syringe) 10 ml FLUSH ASDIRECTED PRN PRN Reason: Keep Vein Open Last Admin: 07/22/20 19:34 Dose: 10 ml Documented by: Sodium Polystyrene Sulfonate (Sodium Polystyrene Sulfonate 15 Gm/60 Ml Susp 60 Ml Bot) 15 gm PO ONETIME ONE Stop: 07/23/20 09:46 Last Admin: 07/23/20 09:54 Dose: 15 gm Documented by: Warfarin Sodium (Warfarin 5 Mg Tab) 5 mg PO ONETIME ONE Stop: 07/23/20 10:01 Last Admin: 07/23/20 09:55 Dose: 5 mg Documented by: Warfarin Sodium (Warfarin 5 Mg Tab) 5 mg PO ONETIME ONE Stop: 07/24/20 09:01 Last Admin: 07/24/20 08:56 Dose: 5 mg Documented by: Warfarin Sodium (Warfarin 5 Mg Tab) 5 mg PO ONETIME ONE Stop: 07/25/20 12:01 Last Admin: 07/25/20 11:56 Dose: 5 mg Documented by: - Exam Quality Assessment: DVT Prophylaxis General: Alert, Cooperative, No Acute Distress Lungs: Clear to Auscultation, Normal Respiratory Effort, Decreased Breath Sounds Cardiovascular: Regular Rate, Irregular Rhythm, Murmurs GI/Abdominal Exam: Soft, Non-Tender, No Organomegaly, No Distention Back Exam: Normal Inspection, Full Range of Motion Extremities: Non-Tender, No Pedal Edema - Patient Data Lab Results Last 24 hrs: Laboratory Results - last 24 hr 07/24/20 07/25/20 07/25/20 Range/Units 14:50 05:12 05:12 WBC 17.2 H (4.5-11.0) K/uL RBC 4.70 (3.30-5.50) M/uL Hgb 14.3 (12.0-15.0) g/dL Hct 45.0 (36.0-48.0) % MCV 96 (80-98) fL MCH 30 (27-31) pg MCHC 32 (32-36) % Plt Count 159 (150-400) K/uL Neut % (Auto) 81 H (36-66) % Lymph % (Auto) 9 L (24-44) % [place] % (Auto) 10 H (2-6) % Eos % (Auto) 1 L (2-4) % Baso % (Auto) 0 (0-1) % PT 15.3 H (9.5-12.0) sec INR 1.41 H (0.80-1.20) Sodium (140-148) mmol/L Potassium (3.6-5.2) mmol/L Chloride (100-108) mmol/L Carbon Dioxide (21-32) mmol/L Anion Gap (5.0-14.0) mmol/L BUN (7-18) mg/dL Creatinine (0.6-1.0) mg/dL Est Cr Clr Drug Dosing mL/min Estimated GFR (MDRD) (>60) Glucose (74-106) mg/dL Calcium (8.5-10.1) mg/dL Urine Color (YELLOW) Urine Appearance (CLEAR) Urine pH (5.0-8.0) Ur Specific [place] (1.008-1.030) Urine Protein (NEGATIVE) mg/dL Urine Glucose (UA) (NEGATIVE) mg/dL Urine Ketones (NEGATIVE) mg/dL Urine Occult Blood (NEGATIVE) Urine Nitrite (NEGATIVE) Urine Bilirubin (NEGATIVE) Urine Urobilinogen (0.2-1.0) EU/dL Ur Leukocyte Esterase (NEGATIVE) Urine RBC (0-5) Urine WBC (0-5) Ur Epithelial Cells Amorphous Sediment Urine Bacteria Urine Mucus Urine Other SARS CoV-2 RNA Rapid [place] Negative 07/25/20 07/25/20 Range/Units 05:12 08:12 WBC (4.5-11.0) K/uL RBC (3.30-5.50) M/uL Hgb (12.0-15.0) g/dL Hct (36.0-48.0) % MCV (80-98) fL MCH (27-31) pg MCHC (32-36) % Plt Count (150-400) K/uL Neut % (Auto) (36-66) % Lymph % (Auto) (24-44) % [place] % (Auto) (2-6) % Eos % (Auto) (2-4) % Baso % (Auto) (0-1) % PT (9.5-12.0) sec INR (0.80-1.20) Sodium 144 (140-148) mmol/L Potassium 4.5 (3.6-5.2) mmol/L Chloride 106 (100-108) mmol/L Carbon Dioxide 21 (21-32) mmol/L Anion Gap 17.3 H (5.0-14.0) mmol/L BUN 44 H (7-18) mg/dL Creatinine 1.2 H (0.6-1.0) mg/dL Est Cr Clr Drug Dosing 32.50 mL/min Estimated GFR (MDRD) 43 L (>60) Glucose 224 H (74-106) mg/dL Calcium 8.7 (8.5-10.1) mg/dL Urine Color Yellow (YELLOW) Urine Appearance Cloudy A (CLEAR) Urine pH 5.5 (5.0-8.0) Ur Specific [place] 1.025 (1.008-1.030) Urine Protein 100 H (NEGATIVE) mg/dL Urine Glucose (UA) Negative (NEGATIVE) mg/dL Urine Ketones Negative (NEGATIVE) mg/dL Urine Occult Blood Negative (NEGATIVE) Urine Nitrite Negative (NEGATIVE) Urine Bilirubin Small H (NEGATIVE) Urine Urobilinogen 1.0 (0.2-1.0) EU/dL Ur Leukocyte Esterase Negative (NEGATIVE) Urine RBC 0-5 (0-5) Urine WBC 0-5 (0-5) Ur Epithelial Cells Many Amorphous Sediment Few Urine Bacteria Many Urine Mucus Not seen Urine Other See note SARS CoV-2 RNA Rapid [facility] Result Diagrams: 04/02/21 05:12 07/25/20 05:12 Sepsis Event Note - Evaluation Sepsis Screening Result: No Definite Risk - Focused Exam Vital Signs: Vital Signs Temp Pulse Pulse Resp BP BP Pulse Ox 07/25/20 12:00 97.3 F 14 121/92 H 93 L 07/25/20 10:00 60 14 128/55 L 93 L 07/25/20 08:12 90 157/100 H 07/25/20 08:00 97 F 18 157/100 H 92 L 07/25/20 06:00 114 H 20 160/86 H 92 L 07/25/20 04:00 98 24 H 114/56 L 91 L 07/25/20 02:00 98.5 F 91 11 L 121/75 92 L - Problem List Review Problem List Initiated/Reviewed/Updated: Yes - My Orders Last 24 Hours: My Active Orders 07/24/20 21:00 Enoxaparin [Lovenox] 40 mg SUBCUT BEDTIME 07/25/20 11:40 Patient Status [ADT] Routine 07/26/20 05:00 BASIC METABOLIC PANEL,BMP [CHEM] Timed CBC WITH AUTO DIFF [HEME] Timed 07/26/20 05:11 INR,PT,PROTHROMBIN TIME [COAG] AM - Plan Plan:: ASSESSMENT AND PLAN ATRIAL FIBRILLATION WITH RAPID VENTRICULAR RESPONSE-Calculated [id number] score of 3. Heart rate well controlled on current therapy -Echocardiogram inpatient versus outpatient depending on availability. -Metoprolol XL 100 mg p.o. daily -Diltiazem CD 120 mg daily -Warfarin 5 mg p.o. today -Reassess INR in a.m. ELEVATED TROPONIN-serial troponin levels stable ELEVATED CREATININE-renal function significantly improved from admission and is now likely at baseline -Saline lock IV -Closely monitor urine output and renal function HYPERKALEMIA-resolved DIASTOLIC CONGESTIVE HEART FAILURE-preliminary echocardiogram report shows grade 3 diastolic heart failure with underlying severe left ventricular hypertrophy, severe , severe AI, severe MS, moderate MR and TR. There is also left atrial enlargement. Left ventricular systolic function appears to be well preserved. Continues to experience some shortness of breath, chest x-ray does show effusions with evidence of pulmonary edema -Furosemide 20 mg IV twice today, reassess in a.m. -Outpatient follow-up with cardiology LEUKOCYTOSIS-specific etiology not apparent, no evidence of underlying infection noted on evaluation. -Continue to monitor MAINTENANCE ISSUES -DVT prophylaxis; Lovenox 40 mg subcu daily -GI prophylaxis; not indicated -[place] catheter; not indicated -Nutrition; regular diet -Nicotine dependence; not required CODE STATUS-FULL CODE ADMISSION STATUS-patient will be admitted to inpatient status, expect at least a 2 night hospital stay for evaluation and management of problems as outlined above. At the time of this admission I do not reasonably expected evaluation and management of this problem will require more than a 96 hour hospital stay. DISPOSITION-anticipate discharge to skilled nursing PRIMARY CARE PROVIDER-Dr. Vieira
[2020-07-25] MEDS: Enoxaparin 40 MG/0.4 ML Syringe SUBCUT SCH (20:41)
[2020-07-26] MEDS: Diltiazem 120 MG Cap.CD PO SCH (08:42)
[2020-07-26] MEDS: Metoprolol Succinate 50 MG Tab.ER PO SCH (08:42)
[2020-07-26] MEDS ORDERED: Furosemide 40 MG/4 ML VIAL IVPUSH ONE ×2 (09:00→18:00)
[2020-07-26] MEDS ORDERED: Warfarin 5 MG Tab PO ONE (09:00)
--- NOTE | 2020-07-26 10:40 | PCM.PN ---
- General Info Date of Service: 07/26/20 Subjective Update: Ms. Stern has been stable over the last 24 hours. White blood cell count has increased again today, she has remained afebrile. She reports that she feels well and has slowly gained some strength over the past few days. Appetite has been good and she has been having regular bowel movements. Denies specific symptoms of infection. Functional Status: Reports: Tolerating Diet, Urinating - Review of Systems General: Reports: Weakness, Fatigue. Denies: Fever, Chills Pulmonary: Reports: Shortness of Breath. Denies: Pleuritic Chest Pain, Cough, Sputum, Hemoptysis, Wheezing Cardiovascular: Reports: Dyspnea on Exertion, Edema. Denies: Chest Pain, Palpitations, Orthopnea, PND, Lightheadedness Gastrointestinal: Reports: No Symptoms Genitourinary: Reports: No Symptoms - Patient Data Vitals - Most Recent: Last Vital Signs Temp 96.3 F L 07/26/20 07:56 Pulse 83 07/26/20 08:42 Resp 18 07/26/20 07:56 BP 117/41 L 07/26/20 08:42 Pulse Ox 94 L 07/26/20 07:56 Weight - Most Recent: 248 lb 4.8 oz I&O - Last 24 Hours: Intake & Output 07/25/20 07/26/20 07/26/20 22:59 06:59 14:59 Intake Total 600 Output Total 600 Balance 0 Lab Results Last 24 Hours: Laboratory Results - last 24 hr 07/26/20 07/26/20 07/26/20 Range/Units 05:00 05:00 05:00 WBC 19.6 H (4.5-11.0) K/uL RBC 4.68 (3.30-5.50) M/uL Hgb 14.0 (12.0-15.0) g/dL Hct 45.4 (36.0-48.0) % MCV 97 (80-98) fL MCH 30 (27-31) pg MCHC 31 L (32-36) % Plt Count 154 (150-400) K/uL Neut % (Auto) 82 H (36-66) % Lymph % (Auto) 7 L (24-44) % [place] % (Auto) 10 H (2-6) % Eos % (Auto) 0 L (2-4) % Baso % (Auto) 0 (0-1) % PT 19.9 H (9.5-12.0) sec INR 1.85 H (0.80-1.20) Sodium 142 (140-148) mmol/L Potassium 4.5 (3.6-5.2) mmol/L Chloride 106 (100-108) mmol/L Carbon Dioxide 24 (21-32) mmol/L Anion Gap 12.1 (5.0-14.0) mmol/L BUN 41 H (7-18) mg/dL Creatinine 1.2 H (0.6-1.0) mg/dL Est Cr Clr Drug Dosing 32.50 mL/min Estimated GFR (MDRD) 43 L (>60) Glucose 208 H (74-106) mg/dL Calcium 9.1 (8.5-10.1) mg/dL Med Orders - Current: Current Medications Acetaminophen (Acetaminophen 325 Mg Tab) 650 mg PO Q4H PRN PRN Reason: Pain (Mild 1-3)/fever Last Admin: 07/22/20 22:20 Dose: 650 mg Documented by: Diltiazem HCl (Diltiazem 120 Mg Cap.Cd) 120 mg PO DAILY [facility] Last Admin: 07/26/20 08:42 Dose: 120 mg Documented by: Dimethicone/Zinc Oxide (Dimethicone 20%/Zinc Oxide 25% 56 Gm [place] Bottle) 1 gm TOP ASDIRECTED PRN PRN Reason: Rash Last Admin: 07/23/20 02:52 Dose: 1 applic Documented by: Enoxaparin Sodium (Enoxaparin 40 Mg/0.4 Ml Syringe) 40 mg SUBCUT BEDTIME [facility] Last Admin: 07/25/20 20:41 Dose: 40 mg Documented by: Metoprolol Succinate (Metoprolol Succinate 50 Mg Tab.Er) 100 mg PO DAILY [facility] Last Admin: 07/26/20 08:42 Dose: 100 mg Documented by: Ondansetron HCl (Ondansetron 4 Mg/2 Ml Sdv) 4 mg IV Q4H PRN PRN Reason: Nausea/Vomiting Polyethylene Glycol (Polyethylene Glycol 3350 Powder 17 Gm Packet) 17 gm PO DAILY PRN PRN Reason: Constipation Sodium Chloride (Sodium Chloride 0.9% 10 Ml Syringe) 10 ml FLUSH ASDIRECTED PRN PRN Reason: Keep Vein Open Discontinued Medications Aspirin (Aspirin 81 Mg Tab.Chew) 324 mg PO ONETIME ONE Stop: 07/22/20 18:49 Last Admin: 07/22/20 18:58 Dose: 324 mg Documented by: Diltiazem HCl (Diltiazem Ir 30 Mg Tab) 30 mg PO Q6HR [facility] Last Admin: 07/24/20 04:16 Dose: 30 mg Documented by: Enoxaparin Sodium (Enoxaparin 30 Mg/0.3 Ml Syringe) 30 mg SUBCUT DAILY [facility] Last Admin: 07/22/20 22:21 Dose: 30 mg Documented by: Enoxaparin Sodium (Enoxaparin 30 Mg/0.3 Ml Syringe) 30 mg SUBCUT BEDTIME [facility] Last Admin: 07/23/20 21:05 Dose: 30 mg Documented by: Furosemide (Furosemide 20 Mg/2 Ml Vial) 20 mg IVPUSH NOW ONE Stop: 07/25/20 11:01 Last Admin: 07/25/20 11:56 Dose: 20 mg Documented by: Furosemide (Furosemide 20 Mg/2 Ml Vial) 20 mg IVPUSH NOW ONE Stop: 07/25/20 12:46 Last Admin: 07/25/20 14:14 Dose: 20 mg Documented by: Furosemide (Furosemide 40 Mg/4 Ml Vial) 40 mg IVPUSH NOW ONE Stop: 07/26/20 09:01 Last Admin: 07/26/20 09:22 Dose: 40 mg Documented by: Sodium Chloride (Normal Saline) 1,000 mls @ 250 mls/hr IV ASDIRECTED [facility] Last Admin: 07/22/20 19:49 Dose: 250 mls/hr Documented by: Sodium Chloride (Normal Saline) 1,000 mls @ 125 mls/hr IV ASDIRECTED [facility] Last Admin: 07/23/20 09:27 Dose: 125 mls/hr Documented by: Sodium Chloride (Normal Saline) 1,000 mls @ 100 mls/hr IV ASDIRECTED [facility] Metoprolol Tartrate (Metoprolol Tartrate 5 Mg/5 Ml Sdv) 5 mg IVPUSH ONETIME ONE Stop: 07/22/20 18:32 Last Admin: 07/22/20 18:45 Dose: 5 mg Documented by: Metoprolol Tartrate (Metoprolol Tartrate 5 Mg/5 Ml Sdv) 5 mg IVPUSH ONETIME ONE Stop: 07/22/20 19:08 Last Admin: 07/22/20 19:18 Dose: 5 mg Documented by: Metoprolol Tartrate (Metoprolol Tartrate 50 Mg Tab) 50 mg PO ONETIME ONE Stop: 07/22/20 19:08 Last Admin: 07/22/20 19:12 Dose: 50 mg Documented by: Metoprolol Tartrate (Metoprolol Tartrate 5 Mg/5 Ml Sdv) 5 mg IVPUSH ONETIME ONE Stop: 07/22/20 19:18 Last Admin: 07/22/20 19:34 Dose: 5 mg Documented by: Metoprolol Tartrate (Metoprolol Tartrate 25 Mg Tab) 25 mg PO Q6H [facility] Last Admin: 07/23/20 00:14 Dose: 25 mg Documented by: Metoprolol Tartrate (Metoprolol Tartrate 25 Mg Tab) 25 mg PO Q6H [facility] Last Admin: 07/23/20 15:16 Dose: Not Given Documented by: Sodium Chloride (Sodium Chloride 0.9% 10 Ml Syringe) 10 ml FLUSH ASDIRECTED PRN PRN Reason: Keep Vein Open Last Admin: 07/22/20 19:34 Dose: 10 ml Documented by: Sodium Polystyrene Sulfonate (Sodium Polystyrene Sulfonate 15 Gm/60 Ml Susp 60 Ml Bot) 15 gm PO ONETIME ONE Stop: 07/23/20 09:46 Last Admin: 07/23/20 09:54 Dose: 15 gm Documented by: Warfarin Sodium (Warfarin 5 Mg Tab) 5 mg PO ONETIME ONE Stop: 07/23/20 10:01 Last Admin: 07/23/20 09:55 Dose: 5 mg Documented by: Warfarin Sodium (Warfarin 5 Mg Tab) 5 mg PO ONETIME ONE Stop: 07/24/20 09:01 Last Admin: 07/24/20 08:56 Dose: 5 mg Documented by: Warfarin Sodium (Warfarin 5 Mg Tab) 5 mg PO ONETIME ONE Stop: 07/25/20 12:01 Last Admin: 07/25/20 11:56 Dose: 5 mg Documented by: Warfarin Sodium (Warfarin 5 Mg Tab) 5 mg PO ONETIME ONE Stop: 07/26/20 09:01 Last Admin: 07/26/20 09:22 Dose: 5 mg Documented by: - Exam Quality Assessment: DVT Prophylaxis General: Alert, Cooperative, Mild Distress Lungs: Clear to Auscultation, Normal Respiratory Effort, Decreased Breath Sounds Cardiovascular: Regular Rate, Regular Rhythm, Murmurs GI/Abdominal Exam: Soft, Non-Tender, No Organomegaly, No Distention Extremities: Non-Tender, Pedal Edema - Patient Data Lab Results Last 24 hrs: Laboratory Results - last 24 hr 07/26/20 07/26/20 07/26/20 Range/Units 05:00 05:00 05:00 WBC 19.6 H (4.5-11.0) K/uL RBC 4.68 (3.30-5.50) M/uL Hgb 14.0 (12.0-15.0) g/dL Hct 45.4 (36.0-48.0) % MCV 97 (80-98) fL MCH 30 (27-31) pg MCHC 31 L (32-36) % Plt Count 154 (150-400) K/uL Neut % (Auto) 82 H (36-66) % Lymph % (Auto) 7 L (24-44) % [place] % (Auto) 10 H (2-6) % Eos % (Auto) 0 L (2-4) % Baso % (Auto) 0 (0-1) % PT 19.9 H (9.5-12.0) sec INR 1.85 H (0.80-1.20) Sodium 142 (140-148) mmol/L Potassium 4.5 (3.6-5.2) mmol/L Chloride 106 (100-108) mmol/L Carbon Dioxide 24 (21-32) mmol/L Anion Gap 12.1 (5.0-14.0) mmol/L BUN 41 H (7-18) mg/dL Creatinine 1.2 H (0.6-1.0) mg/dL Est Cr Clr Drug Dosing 32.50 mL/min Estimated GFR (MDRD) 43 L (>60) Glucose 208 H (74-106) mg/dL Calcium 9.1 (8.5-10.1) mg/dL Result Diagrams: 07/26/20 05:00 07/26/20 05:00 Sepsis Event Note - Evaluation Sepsis Screening Result: Sepsis Risk - Focused Exam Vital Signs: Vital Signs Temp Pulse Pulse Resp BP BP Pulse Ox 07/26/20 08:42 83 117/41 L 07/26/20 07:56 96.3 F L 83 18 117/41 L 94 L 07/26/20 05:00 96.5 F L 69 15 108/50 L 94 L 07/26/20 01:00 36.6 F L 17 - Problem List Review Problem List Initiated/Reviewed/Updated: Yes - My Orders Last 24 Hours: My Active Orders 07/25/20 11:40 Patient Status [ADT] Routine 07/26/20 08:31 Chest Abdomen Pelvis wo Cont [CT] Stat 07/26/20 18:00 Furosemide [Lasix] 40 mg IVPUSH NOW ONE 07/27/20 05:00 BASIC METABOLIC PANEL,BMP [CHEM] Timed CBC WITH AUTO DIFF [HEME] Timed 07/27/20 05:11 INR,PT,PROTHROMBIN TIME [COAG] AM - Plan Plan:: ASSESSMENT AND PLAN ATRIAL FIBRILLATION WITH RAPID VENTRICULAR RESPONSE-Calculated [id number] score of 3. Heart rate well controlled on current therapy -Metoprolol XL 100 mg p.o. daily -Diltiazem CD 120 mg daily -Warfarin 5 mg p.o. today -Reassess INR in a.m. ELEVATED TROPONIN-serial troponin levels stable ELEVATED CREATININE-renal function significantly improved from admission and is now likely at baseline -Saline lock IV -Closely monitor urine output and renal function HYPERKALEMIA-resolved DIASTOLIC CONGESTIVE HEART FAILURE-preliminary echocardiogram report shows grade 3 diastolic heart failure with underlying severe left ventricular hypertrophy, severe , severe AI, severe MS, moderate MR and TR. There is also left atrial enlargement. Left ventricular systolic function appears to be well preserved. Continues to experience some shortness of breath, chest x-ray does show effusions with evidence of pulmonary edema -Furosemide 40 mg IV twice today, reassess in a.m. -Outpatient follow-up with cardiology LEUKOCYTOSIS-specific etiology not apparent, no evidence of underlying infection noted on evaluation. -Continue to monitor -CT scan of the chest abdomen and pelvis today MAINTENANCE ISSUES -DVT prophylaxis; Lovenox 40 mg subcu daily -GI prophylaxis; not indicated -Landin catheter; not indicated -Nutrition; regular diet -Nicotine dependence; not required CODE STATUS-FULL CODE ADMISSION STATUS-patient will be admitted to inpatient status, expect at least a 2 night hospital stay for evaluation and management of problems as outlined above. At the time of this admission I do not reasonably expected evaluation and management of this problem will require more than a 96 hour hospital stay. DISPOSITION-anticipate discharge to [facility] PRIMARY CARE PROVIDER-Dr. Vieira
--- NOTE | 2020-07-26 12:35 | CRLCT ---
INDICATION: Leukocytosis. TECHNIQUE: Noncontrast axial images through the chest, abdomen and pelvis. Sagittal coronal reconstructions. COMPARISON: None. FINDINGS: Limited study due to lack of IV contrast, as well as motion. Chest: Heart is moderately enlarged. Mitral anulus calcifications are noted. No pericardial effusion. There are atherosclerotic changes. No thoracic aortic aneurysm. No pathologically enlarged lymph nodes are identified. Lungs are compromised in their evaluation due to excessive respiratory motion. There are airspace opacities seen in both lung bases, right worse than left, which are likely related to an acute infectious or inflammatory process. Small bilateral pleural effusions are noted with compressive bibasilar atelectasis. There is a 1.4 cm nodule inferiorly in the left lobe of thyroid, which is suboptimally assessed on this exam. Degenerative changes. No acute bony abnormality. Abdomen and pelvis: There are no appreciable intrahepatic lesions on this unenhanced study. No calcified stones are seen within the gallbladder. No significant bile duct dilatation. Spleen is normal in size. No appreciable pancreatic mass on this unenhanced study. No adrenal gland abnormality is identified. There are a few nonobstructing stones seen in both kidneys. No obstructing urinary tract stones or hydroureteronephrosis. No abnormally dilated bowel to suggest obstruction. Severe diverticulosis of the colon, without evidence of acute diverticulitis. No free air or free fluid. Atherosclerotic changes. No aneurysmal dilatation of the abdominal aorta. Unremarkable urinary bladder. Uterus is present. No appreciable adnexal mass. Degenerative changes. No acute bony abnormality. Diffuse body wall edema. IMPRESSION: 1. Limited study due to motion and the lack of IV contrast. 2. Bibasilar airspace opacities, right worse than left, likely related to an acute multifocal infectious or inflammatory process (i.e. pneumonia). 3. Small bilateral pleural effusions with bibasilar atelectasis. 4. Other findings as noted above. Dictated by Roe Mckenzie MD @ 07/26/2020 12:33:36 PM Please note that all CT scans at this facility use dose modulation, iterative reconstruction, and/or weight-based dosing when appropriate to reduce radiation dose to as low as reasonably achievable. Dictated by: Roe Mckenzie MD @ 07/26/2020 12:34:26 (Electronically Signed)
[2020-07-26] MEDS ORDERED: Levofloxacin/Dextrose 5%-Water 750 MG in Premix Bag 1 BAG IV SCH (18:00)
[2020-07-26] MEDS: Lactobacillus Rhamnosus GG (Probiotic) Cap PO SCH ×2 (18:27→21:08)
[2020-07-26] MEDS: Enoxaparin 40 MG/0.4 ML Syringe SUBCUT SCH (21:08)
[2020-07-27] MEDS ORDERED: Warfarin 2.5 MG Tab PO ONE (09:00)
[2020-07-27] MEDS: Metoprolol Succinate 50 MG Tab.ER PO SCH (09:23)
[2020-07-27] MEDS: Lactobacillus Rhamnosus GG (Probiotic) Cap PO SCH ×3 (09:24→20:55)
[2020-07-27] MEDS: Diltiazem 120 MG Cap.CD PO SCH (09:24)
--- NOTE | 2020-07-27 11:16 | PCM.PN ---
- General Info Date of Service: 07/27/20 Subjective Update: Ms. Stern has felt well over the last [address] scan of the chest abdomen pelvis did show bibasilar infiltrates consistent with pneumonia. She continues to deny significant respiratory symptoms other than some shortness of breath which does seem to be slowly improving. She has remained afebrile, white blood cell count remains elevated. Overall strength seems to be slowly improving and appetite has also improved. Functional Status: Reports: Tolerating Diet, Urinating - Review of Systems General: Reports: Weakness, Fatigue. Denies: Fever, Chills Pulmonary: Reports: Shortness of Breath. Denies: Pleuritic Chest Pain, Cough, Sputum, Hemoptysis, Wheezing Cardiovascular: Reports: Dyspnea on Exertion. Denies: Chest Pain, Palpitations, Orthopnea, PND, Edema, Lightheadedness Gastrointestinal: Reports: No Symptoms Genitourinary: Reports: No Symptoms - Patient Data Vitals - Most Recent: Last Vital Signs Temp 97.2 F 07/27/20 07:00 Pulse 73 07/27/20 09:24 Resp 18 07/27/20 07:00 BP 133/66 07/27/20 09:24 Pulse Ox 97 07/27/20 07:00 Weight - Most Recent: 241 lb 1.6 oz I&O - Last 24 Hours: Intake & Output 07/26/20 07/27/20 07/27/20 22:59 06:59 14:59 Intake Total 800 Output Total 500 Balance 800 -500 Lab Results Last 24 Hours: Laboratory Results - last 24 hr 07/27/20 07/27/20 07/27/20 Range/Units 05:49 05:49 05:56 WBC 19.9 H (4.5-11.0) K/uL RBC 4.76 (3.30-5.50) M/uL Hgb 14.2 (12.0-15.0) g/dL Hct 45.6 (36.0-48.0) % MCV 96 (80-98) fL MCH 30 (27-31) pg MCHC 31 L (32-36) % Plt Count 204 (150-400) K/uL Neut % (Auto) 83 H (36-66) % Lymph % (Auto) 7 L (24-44) % [place] % (Auto) 10 H (2-6) % Eos % (Auto) 1 L (2-4) % Baso % (Auto) 0 (0-1) % PT 26.8 H (9.5-12.0) sec INR 2.50 H (0.80-1.20) Sodium 141 (140-148) mmol/L Potassium 4.8 (3.6-5.2) mmol/L Chloride 104 (100-108) mmol/L Carbon Dioxide 23 (21-32) mmol/L Anion Gap 13.6 (5.0-14.0) mmol/L BUN 46 H (7-18) mg/dL Creatinine 1.2 H (0.6-1.0) mg/dL Est Cr Clr Drug Dosing 32.50 mL/min Estimated GFR (MDRD) 43 L (>60) Glucose 211 H (74-106) mg/dL Calcium 8.7 (8.5-10.1) mg/dL Med Orders - Current: Current Medications Acetaminophen (Acetaminophen 325 Mg Tab) 650 mg PO Q4H PRN PRN Reason: Pain (Mild 1-3)/fever Last Admin: 07/22/20 22:20 Dose: 650 mg Documented by: Diltiazem HCl (Diltiazem 120 Mg Cap.Cd) 120 mg PO DAILY [facility] Last Admin: 07/27/20 09:24 Dose: 120 mg Documented by: Dimethicone/Zinc Oxide (Dimethicone 20%/Zinc Oxide 25% 56 Gm Kent Bottle) 1 gm TOP ASDIRECTED PRN PRN Reason: Rash Last Admin: 07/23/20 02:52 Dose: 1 applic Documented by: Furosemide (Furosemide 40 Mg Tab) 40 mg PO DAILY [facility] Levofloxacin/Dextrose 750 mg/ (Premix) 150 mls @ 100 mls/hr IV Q48H [facility] Last Admin: 07/26/20 18:27 Dose: 100 mls/hr Documented by: Lactobacillus Rhamnosus (Lactobacillus Rhamnosus Gg (Probiotic) Cap) 1 cap PO BID [facility] Last Admin: 07/27/20 09:24 Dose: 1 cap Documented by: Metoprolol Succinate (Metoprolol Succinate 50 Mg Tab.Er) 100 mg PO DAILY [facility] Last Admin: 07/27/20 09:23 Dose: 100 mg Documented by: Ondansetron HCl (Ondansetron 4 Mg/2 Ml Sdv) 4 mg IV Q4H PRN PRN Reason: Nausea/Vomiting Polyethylene Glycol (Polyethylene Glycol 3350 Powder 17 Gm Packet) 17 gm PO DAILY PRN PRN Reason: Constipation Sodium Chloride (Sodium Chloride 0.9% 10 Ml Syringe) 10 ml FLUSH ASDIRECTED PRN PRN Reason: Keep Vein Open Warfarin Sodium (Warfarin 2.5 Mg Tab) 2.5 mg PO DAILY@1300 LEON Discontinued Medications Aspirin (Aspirin 81 Mg Tab.Chew) 324 mg PO ONETIME ONE Stop: 07/22/20 18:49 Last Admin: 07/22/20 18:58 Dose: 324 mg Documented by: Diltiazem HCl (Diltiazem Ir 30 Mg Tab) 30 mg PO Q6HR [facility] Last Admin: 07/24/20 04:16 Dose: 30 mg Documented by: Enoxaparin Sodium (Enoxaparin 30 Mg/0.3 Ml Syringe) 30 mg SUBCUT DAILY [facility] Last Admin: 07/22/20 22:21 Dose: 30 mg Documented by: Enoxaparin Sodium (Enoxaparin 30 Mg/0.3 Ml Syringe) 30 mg SUBCUT BEDTIME [facility] Last Admin: 07/23/20 21:05 Dose: 30 mg Documented by: Enoxaparin Sodium (Enoxaparin 40 Mg/0.4 Ml Syringe) 40 mg SUBCUT BEDTIME [facility] Last Admin: 07/26/20 21:08 Dose: 40 mg Documented by: Furosemide (Furosemide 20 Mg/2 Ml Vial) 20 mg IVPUSH NOW ONE Stop: 07/25/20 11:01 Last Admin: 07/25/20 11:56 Dose: 20 mg Documented by: Furosemide (Furosemide 20 Mg/2 Ml Vial) 20 mg IVPUSH NOW ONE Stop: 07/25/20 12:46 Last Admin: 07/25/20 14:14 Dose: 20 mg Documented by: Furosemide (Furosemide 40 Mg/4 Ml Vial) 40 mg IVPUSH NOW ONE Stop: 07/26/20 09:01 Last Admin: 07/26/20 09:22 Dose: 40 mg Documented by: Furosemide (Furosemide 40 Mg/4 Ml Vial) 40 mg IVPUSH NOW ONE Stop: 07/26/20 18:01 Last Admin: 07/26/20 17:08 Dose: 40 mg Documented by: Sodium Chloride (Normal Saline) 1,000 mls @ 250 mls/hr IV ASDIRECTED [facility] Last Admin: 07/22/20 19:49 Dose: 250 mls/hr Documented by: Sodium Chloride (Normal Saline) 1,000 mls @ 125 mls/hr IV ASDIRECTED [facility] Last Admin: 07/23/20 09:27 Dose: 125 mls/hr Documented by: Sodium Chloride (Normal Saline) 1,000 mls @ 100 mls/hr IV ASDIRECTED [facility] Metoprolol Tartrate (Metoprolol Tartrate 5 Mg/5 Ml Sdv) 5 mg IVPUSH ONETIME ONE Stop: 07/22/20 18:32 Last Admin: 07/22/20 18:45 Dose: 5 mg Documented by: Metoprolol Tartrate (Metoprolol Tartrate 5 Mg/5 Ml Sdv) 5 mg IVPUSH ONETIME ONE Stop: 07/22/20 19:08 Last Admin: 07/22/20 19:18 Dose: 5 mg Documented by: Metoprolol Tartrate (Metoprolol Tartrate 50 Mg Tab) 50 mg PO ONETIME ONE Stop: 07/22/20 19:08 Last Admin: 07/22/20 19:12 Dose: 50 mg Documented by: Metoprolol Tartrate (Metoprolol Tartrate 5 Mg/5 Ml Sdv) 5 mg IVPUSH ONETIME ONE Stop: 07/22/20 19:18 Last Admin: 07/22/20 19:34 Dose: 5 mg Documented by: Metoprolol Tartrate (Metoprolol Tartrate 25 Mg Tab) 25 mg PO Q6H [facility] Last Admin: 07/23/20 00:14 Dose: 25 mg Documented by: Metoprolol Tartrate (Metoprolol Tartrate 25 Mg Tab) 25 mg PO Q6H [facility] Last Admin: 07/23/20 15:16 Dose: Not Given Documented by: Sodium Chloride (Sodium Chloride 0.9% 10 Ml Syringe) 10 ml FLUSH ASDIRECTED PRN PRN Reason: Keep Vein Open Last Admin: 07/22/20 19:34 Dose: 10 ml Documented by: Sodium Polystyrene Sulfonate (Sodium Polystyrene Sulfonate 15 Gm/60 Ml Susp 60 Ml Bot) 15 gm PO ONETIME ONE Stop: 07/23/20 09:46 Last Admin: 07/23/20 09:54 Dose: 15 gm Documented by: Warfarin Sodium (Warfarin 5 Mg Tab) 5 mg PO ONETIME ONE Stop: 07/23/20 10:01 Last Admin: 07/23/20 09:55 Dose: 5 mg Documented by: Warfarin Sodium (Warfarin 5 Mg Tab) 5 mg PO ONETIME ONE Stop: 07/24/20 09:01 Last Admin: 07/24/20 08:56 Dose: 5 mg Documented by: Warfarin Sodium (Warfarin 5 Mg Tab) 5 mg PO ONETIME ONE Stop: 07/25/20 12:01 Last Admin: 07/25/20 11:56 Dose: 5 mg Documented by: Warfarin Sodium (Warfarin 5 Mg Tab) 5 mg PO ONETIME ONE Stop: 07/26/20 09:01 Last Admin: 07/26/20 09:22 Dose: 5 mg Documented by: Warfarin Sodium (Warfarin 2.5 Mg Tab) 2.5 mg PO ONETIME ONE Stop: 07/27/20 09:01 Last Admin: 07/27/20 09:24 Dose: 2.5 mg Documented by: - Exam Quality Assessment: Supplemental Oxygen, DVT Prophylaxis General: Alert, Oriented, Cooperative, No Acute Distress Lungs: Clear to Auscultation, Normal Respiratory Effort, Decreased Breath Sounds Cardiovascular: Regular Rate, Irregular Rhythm, Murmurs GI/Abdominal Exam: Soft, Non-Tender, No Organomegaly, No Distention Extremities: Non-Tender, No Pedal Edema - Patient Data Lab Results Last 24 hrs: Laboratory Results - last 24 hr 07/27/20 07/27/20 07/27/20 Range/Units 05:49 05:49 05:56 WBC 19.9 H (4.5-11.0) K/uL RBC 4.76 (3.30-5.50) M/uL Hgb 14.2 (12.0-15.0) g/dL Hct 45.6 (36.0-48.0) % MCV 96 (80-98) fL MCH 30 (27-31) pg MCHC 31 L (32-36) % Plt Count 204 (150-400) K/uL Neut % (Auto) 83 H (36-66) % Lymph % (Auto) 7 L (24-44) % [place] % (Auto) 10 H (2-6) % Eos % (Auto) 1 L (2-4) % Baso % (Auto) 0 (0-1) % PT 26.8 H (9.5-12.0) sec INR 2.50 H (0.80-1.20) Sodium 141 (140-148) mmol/L Potassium 4.8 (3.6-5.2) mmol/L Chloride 104 (100-108) mmol/L Carbon Dioxide 23 (21-32) mmol/L Anion Gap 13.6 (5.0-14.0) mmol/L BUN 46 H (7-18) mg/dL Creatinine 1.2 H (0.6-1.0) mg/dL Est Cr Clr Drug Dosing 32.50 mL/min Estimated GFR (MDRD) 43 L (>60) Glucose 211 H (74-106) mg/dL Calcium 8.7 (8.5-10.1) mg/dL Result Diagrams: 07/27/20 05:49 07/27/20 05:49 Sepsis Event Note - Evaluation Sepsis Screening Result: Sepsis Risk - Focused Exam Vital Signs: Vital Signs Temp Temp Pulse Pulse Resp BP BP 07/27/20 09:24 73 133/66 07/27/20 09:23 73 133/66 07/27/20 07:00 97.2 F 61 18 133/66 07/27/20 03:35 97.4 F 58 L 18 137/72 Pulse Ox 07/27/20 09:24 07/27/20 09:23 07/27/20 07:00 97 07/27/20 03:35 94 L - Problem List Review Problem List Initiated/Reviewed/Updated: Yes - My Orders Last 24 Hours: My Active Orders 07/26/20 17:28 Blood Culture x2 Reflex Set [OM.PC] Urgent 07/26/20 17:30 CULTURE BLOOD [BC] Stat Lactobacillus Rhamnosus GG [Culturelle] 1 cap PO BID 07/26/20 17:45 CULTURE BLOOD [BC] Stat 07/26/20 18:00 Levofloxacin/Dextrose 5%-Water [Levaquin in D5W 750 MG/150 ML] 750 mg Premix Bag 1 bag IV Q48H 07/27/20 Breakfast Regular Diet [DIET] 07/27/20 11:15 Furosemide [Lasix] 40 mg PO DAILY 07/28/20 05:00 BASIC METABOLIC PANEL,BMP [CHEM] Timed CBC WITH AUTO DIFF [HEME] Timed 07/28/20 05:11 INR,PT,PROTHROMBIN TIME [COAG] AM 07/28/20 13:00 Warfarin [Coumadin] 2.5 mg PO DAILY@1300 - Plan Plan:: ASSESSMENT AND PLAN ATRIAL FIBRILLATION WITH RAPID VENTRICULAR RESPONSE-Calculated [id number] score of 3. Heart rate well controlled on current therapy -Metoprolol XL 100 mg p.o. daily -Diltiazem CD 120 mg daily -Warfarin 5 mg p.o. today -Reassess INR in a.m. ELEVATED TROPONIN-serial troponin levels stable ELEVATED CREATININE-renal function significantly improved from admission and is now likely at baseline -Saline lock IV -Closely monitor urine output and renal function HYPERKALEMIA-resolved DIASTOLIC CONGESTIVE HEART FAILURE-preliminary echocardiogram report shows grade 3 diastolic heart failure with underlying severe left ventricular hypertrophy, severe , severe AI, severe MS, moderate MR and TR. There is also left atrial enlargement. Left ventricular systolic function appears to be well preserved. Continues to experience some shortness of breath, chest x-ray does show effusions with evidence of pulmonary edema -Furosemide 40 mg p.o. daily -Outpatient follow-up with cardiology BILATERAL PNEUMONIA-other than elevation in white blood cell count no other obvious evidence of underlying infection. She is remained afebrile. Does require supplemental oxygen and reports shortness of breath with activity but has not had significant cough or other respiratory compromise -Levofloxacin 750 mg IV every 48 hours MAINTENANCE ISSUES -DVT prophylaxis; Lovenox 40 mg subcu daily -GI prophylaxis; not indicated -Landin catheter; not indicated -Nutrition; regular diet -Nicotine dependence; not required CODE STATUS-FULL CODE ADMISSION STATUS-patient will be admitted to inpatient status, expect at least a 2 night hospital stay for evaluation and management of problems as outlined above. At the time of this admission I do not reasonably expected evaluation and management of this problem will require more than a 96 hour hospital stay. DISPOSITION-anticipate discharge to [facility] tomorrow PRIMARY CARE PROVIDER-Dr. Vieira
--- NOTE | 2020-07-27 12:07 | PCM.DCSUM1 ---
Discharge Summary - Hospital Course Brief History: Ms. Stern is an 80-year-old woman who was admitted through the emergency department with weakness and shortness of breath secondary to atrial fibrillation with rapid ventricular response and diastolic congestive heart failure. - Discharge Data Discharge Date: 07/28/20 Discharge Disposition: DC/Tfer to SNF 03 Condition: Fair - Referral to Home Health Primary Care Physician: Dandre Vieira MD - Discharge Diagnosis/Problem(s) (1) CKD (chronic kidney disease) stage 3, GFR 30-59 ml/min SNOMED Code(s): 814723043 ICD Code: N18.30 - CHRONIC KIDNEY DISEASE, STAGE 3 UNSPECIFIED Status: Acute Current Visit: Yes (2) Pneumonia SNOMED Code(s): 493225006 ICD Code: J18.9 - PNEUMONIA, UNSPECIFIED ORGANISM Status: Acute Current Visit: Yes (3) Diastolic CHF SNOMED Code(s): 647944192, 231532589 ICD Code: I50.30 - UNSPECIFIED DIASTOLIC (CONGESTIVE) HEART FAILURE Status: Acute Current Visit: Yes (4) Aortic stenosis, severe SNOMED Code(s): 463243156 ICD Code: I35.0 - NONRHEUMATIC AORTIC (VALVE) STENOSIS Status: Acute Current Visit: Yes (5) Aortic insufficiency SNOMED Code(s): 30315955 ICD Code: I35.1 - NONRHEUMATIC AORTIC (VALVE) INSUFFICIENCY Status: Acute Current Visit: Yes (6) Atrial fibrillation with RVR SNOMED Code(s): 830412231398548 ICD Code: I48.91 - UNSPECIFIED ATRIAL FIBRILLATION Status: Acute Current Visit: Yes (7) Mitral stenosis with regurgitation SNOMED Code(s): 198925007 ICD Code: I05.2 - RHEUMATIC MITRAL STENOSIS WITH INSUFFICIENCY Status: Acute Current Visit: Yes - Patient Summary/Data Consults: Consultations 07/24/20 09:22 PT Evaluation and Treatment [CONS] Routine Please Evaluate and Treat. PT Reason for Consult: Strengthening Pending Discharge: Yes Discharge Disposition: Detention Facility Special Instructions: OR HOME HEALTH This query below is only for informational purposes and is not editable. Admission Diagnosis/Problem: Atrial fibrillation with rapid ventricular response Hospital Course: Ms. Stern is an 80-year-old woman who was admitted through the emergency department with weakness and lightheadedness secondary to atrial fibrillation with rapid ventricular response. She had not felt well over the past week and during that period of time had become progressively more weak with associated anorexia and some nausea. She has had no fevers chills or sweats. Denies any other symptoms of localized infection. Because of progressive symptoms she reported to the emergency department and was found to be in atrial fibrillation with rapid ventricular response. She has received IV and oral metoprolol with some slowing of her heart rate, but she remains in atrial fibrillation. Denies any prior history of cardiac disease and really has not had much in the way of medical care for the past several years. Creatinine is mildly elevated and she is also noted to have a modest elevation in troponin level. On admission she was treated with oral metoprolol and oral diltiazem. Heart rate came under much better control with use of the 2 medications and she ended up on metoprolol XL 100 mg daily and diltiazem CD 120 mg daily. Calculated [id number]-RMCh score was 3, started on oral anticoagulation with warfarin and INR was therapeutic at the time of discharge. Troponin levels were followed during initial hospitalization because of mild elevation and remained modestly elevated but did not increase significantly. Echocardiogram was obtained which showed normal systolic left ventricular function, but evidence of diastolic congestive failure. Also noted was severe valvular disease with severe , AI, and MS. She was started on regular daily dosing of furosemide 40 mg daily. Renal function improved through hospital stay and was felt to be at baseline by the time of discharge. She remained very weak, barely able to stand and bear weight. She was seen daily by physical therapy and will be discharged to the assisted for restorative physical therapy and Occupational Therapy. White blood cell count was elevated on admission and slowly increased through the initial portion of hospitalization. Chest x-ray was obtained which showed evidence of probable fluid but no obvious infection and urinalysis was clear with no infection. Because of persistent leukocytosis CT scan of the chest abdomen and pelvis was obtained. This did show evidence of bibasilar pulmonary infiltrates consistent with infection and she was started on IV antibiotic therapy with levofloxacin 750 mg every 48 hours. This was transitioned to oral levofloxacin and she will be discharged to the assisted with additional antibiotic therapy. Activity will be as tolerated and she will be on a low-sodium diet. Outpatient cardiology consult will be scheduled for further evaluation and management of her diastolic congestive heart failure, atrial fibrillation, and valvular disease. Follow-up appointment with primary care will be as needed at the assisted. Follow-up labs will be obtained on July 29; BMP and INR. - Patient Instructions Diet: Low Sodium Activity: As Tolerated Other/Special Instructions: Please schedule cardiology consult at [facility]; for follow-up of diastolic congestive heart failure, atrial fibrillation with rapid ventricular response, severe , AI, and MS. Laboratory tests July 29; BMP and INR. - Discharge Plan *PRESCRIPTION DRUG MONITORING PROGRAM REVIEWED*: Not Applicable *COPY OF PRESCRIPTION DRUG MONITORING REPORT IN PATIENT NABEEL: Not Applicable Prescriptions/Med Rec: Diltiazem [Cardizem CD] 120 mg PO DAILY #30 cap.cd Warfarin [Coumadin] 2.5 mg PO DAILY@1300 #60 tablet Lactobacillus Rhamnosus GG [Culturelle] 1 cap PO BID #60 cap Furosemide [Lasix] 40 mg PO DAILY #30 tablet levoFLOXacin [Levaquin] 750 mg PO Q48H #2 tab Metoprolol Tartrate 100 mg PO DAILY #30 tablet Home Medications: Home Meds Lutein 20 mg PO DAILY 07/22/20 [History] Multivit with Iron,Minerals [Complete Senior] 1 tab PO DAILY 07/22/20 [History] Diltiazem [Cardizem CD] 120 mg PO DAILY #30 cap.cd 07/27/20 [Rx] Furosemide [Lasix] 40 mg PO DAILY #30 tablet 07/27/20 [Rx] Lactobacillus Rhamnosus GG [Culturelle] 1 cap PO BID #60 cap 07/27/20 [Rx] Metoprolol Tartrate 100 mg PO DAILY #30 tablet 07/27/20 [Rx] Warfarin [Coumadin] 2.5 mg PO DAILY@1300 #60 tablet 07/27/20 [Rx] levoFLOXacin [Levaquin] 750 mg PO Q48H #2 tab 07/27/20 [Rx] Referrals: Dandre Vieira MD [Primary Care Provider] - - Discharge Summary/Plan Comment DC Time >30 min.: No - Patient Data Vitals - Most Recent: Last Vital Signs Temp 97.1 F 07/27/20 11:00 Pulse 90 07/27/20 11:00 Resp 18 07/27/20 11:00 BP 117/69 07/27/20 11:00 Pulse Ox 98 07/27/20 11:00 Weight - Most Recent: 241 lb 1.6 oz I&O - Last 24 hours: Intake & Output 07/26/20 07/27/20 07/27/20 22:59 06:59 14:59 Intake Total 800 Output Total 500 Balance 800 -500 Lab Results - Last 24 hrs: Laboratory Results - last 24 hr 07/27/20 07/27/20 07/27/20 Range/Units 05:49 05:49 05:56 WBC 19.9 H (4.5-11.0) K/uL RBC 4.76 (3.30-5.50) M/uL Hgb 14.2 (12.0-15.0) g/dL Hct 45.6 (36.0-48.0) % MCV 96 (80-98) fL MCH 30 (27-31) pg MCHC 31 L (32-36) % Plt Count 204 (150-400) K/uL Neut % (Auto) 83 H (36-66) % Lymph % (Auto) 7 L (24-44) % [place] % (Auto) 10 H (2-6) % Eos % (Auto) 1 L (2-4) % Baso % (Auto) 0 (0-1) % PT 26.8 H (9.5-12.0) sec INR 2.50 H (0.80-1.20) Sodium 141 (140-148) mmol/L Potassium 4.8 (3.6-5.2) mmol/L Chloride 104 (100-108) mmol/L Carbon Dioxide 23 (21-32) mmol/L Anion Gap 13.6 (5.0-14.0) mmol/L BUN 46 H (7-18) mg/dL Creatinine 1.2 H (0.6-1.0) mg/dL Est Cr Clr Drug Dosing 32.50 mL/min Estimated GFR (MDRD) 43 L (>60) Glucose 211 H (74-106) mg/dL Calcium 8.7 (8.5-10.1) mg/dL Med Orders - Current: Current Medications Acetaminophen (Acetaminophen 325 Mg Tab) 650 mg PO Q4H PRN PRN Reason: Pain (Mild 1-3)/fever Last Admin: 07/22/20 22:20 Dose: 650 mg Documented by: Diltiazem HCl (Diltiazem 120 Mg Cap.Cd) 120 mg PO DAILY LEON Last Admin: 07/27/20 09:24 Dose: 120 mg Documented by: Dimethicone/Zinc Oxide (Dimethicone 20%/Zinc Oxide 25% 56 Gm [place] Bottle) 1 gm TOP ASDIRECTED PRN PRN Reason: Rash Last Admin: 07/23/20 02:52 Dose: 1 applic Documented by: Furosemide (Furosemide 40 Mg Tab) 40 mg PO DAILY [facility] Lactobacillus Rhamnosus (Lactobacillus Rhamnosus Gg (Probiotic) Cap) 1 cap PO BID [facility] Last Admin: 07/27/20 09:24 Dose: 1 cap Documented by: Levofloxacin (Levofloxacin 250 Mg Tab) 750 mg PO Q48H [facility] Metoprolol Succinate (Metoprolol Succinate 50 Mg Tab.Er) 100 mg PO DAILY [facility] Last Admin: 07/27/20 09:23 Dose: 100 mg Documented by: Ondansetron HCl (Ondansetron 4 Mg/2 Ml Sdv) 4 mg IV Q4H PRN PRN Reason: Nausea/Vomiting Polyethylene Glycol (Polyethylene Glycol 3350 Powder 17 Gm Packet) 17 gm PO DAILY PRN PRN Reason: Constipation Sodium Chloride (Sodium Chloride 0.9% 10 Ml Syringe) 10 ml FLUSH ASDIRECTED PRN PRN Reason: Keep Vein Open Warfarin Sodium (Warfarin 2.5 Mg Tab) 2.5 mg PO DAILY@1300 [facility] Discontinued Medications Aspirin (Aspirin 81 Mg Tab.Chew) 324 mg PO ONETIME ONE Stop: 07/22/20 18:49 Last Admin: 07/22/20 18:58 Dose: 324 mg Documented by: Diltiazem HCl (Diltiazem Ir 30 Mg Tab) 30 mg PO Q6HR [facility] Last Admin: 07/24/20 04:16 Dose: 30 mg Documented by: Enoxaparin Sodium (Enoxaparin 30 Mg/0.3 Ml Syringe) 30 mg SUBCUT DAILY [facility] Last Admin: 07/22/20 22:21 Dose: 30 mg Documented by: Enoxaparin Sodium (Enoxaparin 30 Mg/0.3 Ml Syringe) 30 mg SUBCUT BEDTIME [facility] Last Admin: 07/23/20 21:05 Dose: 30 mg Documented by: Enoxaparin Sodium (Enoxaparin 40 Mg/0.4 Ml Syringe) 40 mg SUBCUT BEDTIME [facility] Last Admin: 07/26/20 21:08 Dose: 40 mg Documented by: Furosemide (Furosemide 20 Mg/2 Ml Vial) 20 mg IVPUSH NOW ONE Stop: 07/25/20 11:01 Last Admin: 07/25/20 11:56 Dose: 20 mg Documented by: Furosemide (Furosemide 20 Mg/2 Ml Vial) 20 mg IVPUSH NOW ONE Stop: 07/25/20 12:46 Last Admin: 07/25/20 14:14 Dose: 20 mg Documented by: Furosemide (Furosemide 40 Mg/4 Ml Vial) 40 mg IVPUSH NOW ONE Stop: 07/26/20 09:01 Last Admin: 07/26/20 09:22 Dose: 40 mg Documented by: Furosemide (Furosemide 40 Mg/4 Ml Vial) 40 mg IVPUSH NOW ONE Stop: 07/26/20 18:01 Last Admin: 07/26/20 17:08 Dose: 40 mg Documented by: Sodium Chloride (Normal Saline) 1,000 mls @ 250 mls/hr IV ASDIRECTED [facility] Last Admin: 07/22/20 19:49 Dose: 250 mls/hr Documented by: Sodium Chloride (Normal Saline) 1,000 mls @ 125 mls/hr IV ASDIRECTED [facility] Last Admin: 07/23/20 09:27 Dose: 125 mls/hr Documented by: Sodium Chloride (Normal Saline) 1,000 mls @ 100 mls/hr IV ASDIRECTED [facility] Levofloxacin/Dextrose 750 mg/ (Premix) 150 mls @ 100 mls/hr IV Q48H [facility] Last Admin: 07/26/20 18:27 Dose: 100 mls/hr Documented by: Metoprolol Tartrate (Metoprolol Tartrate 5 Mg/5 Ml Sdv) 5 mg IVPUSH ONETIME ONE Stop: 07/22/20 18:32 Last Admin: 07/22/20 18:45 Dose: 5 mg Documented by: Metoprolol Tartrate (Metoprolol Tartrate 5 Mg/5 Ml Sdv) 5 mg IVPUSH ONETIME ONE Stop: 07/22/20 19:08 Last Admin: 07/22/20 19:18 Dose: 5 mg Documented by: Metoprolol Tartrate (Metoprolol Tartrate 50 Mg Tab) 50 mg PO ONETIME ONE Stop: 07/22/20 19:08 Last Admin: 07/22/20 19:12 Dose: 50 mg Documented by: Metoprolol Tartrate (Metoprolol Tartrate 5 Mg/5 Ml Sdv) 5 mg IVPUSH ONETIME ONE Stop: 07/22/20 19:18 Last Admin: 07/22/20 19:34 Dose: 5 mg Documented by: Metoprolol Tartrate (Metoprolol Tartrate 25 Mg Tab) 25 mg PO Q6H [facility] Last Admin: 07/23/20 00:14 Dose: 25 mg Documented by: Metoprolol Tartrate (Metoprolol Tartrate 25 Mg Tab) 25 mg PO Q6H [facility] Last Admin: 07/23/20 15:16 Dose: Not Given Documented by: Sodium Chloride (Sodium Chloride 0.9% 10 Ml Syringe) 10 ml FLUSH ASDIRECTED PRN PRN Reason: Keep Vein Open Last Admin: 07/22/20 19:34 Dose: 10 ml Documented by: Sodium Polystyrene Sulfonate (Sodium Polystyrene Sulfonate 15 Gm/60 Ml Susp 60 Ml Bot) 15 gm PO ONETIME ONE Stop: 07/23/20 09:46 Last Admin: 07/23/20 09:54 Dose: 15 gm Documented by: Warfarin Sodium (Warfarin 5 Mg Tab) 5 mg PO ONETIME ONE Stop: 07/23/20 10:01 Last Admin: 07/23/20 09:55 Dose: 5 mg Documented by: Warfarin Sodium (Warfarin 5 Mg Tab) 5 mg PO ONETIME ONE Stop: 07/24/20 09:01 Last Admin: 07/24/20 08:56 Dose: 5 mg Documented by: Warfarin Sodium (Warfarin 5 Mg Tab) 5 mg PO ONETIME ONE Stop: 07/25/20 12:01 Last Admin: 07/25/20 11:56 Dose: 5 mg Documented by: Warfarin Sodium (Warfarin 5 Mg Tab) 5 mg PO ONETIME ONE Stop: 07/26/20 09:01 Last Admin: 07/26/20 09:22 Dose: 5 mg Documented by: Warfarin Sodium (Warfarin 2.5 Mg Tab) 2.5 mg PO ONETIME ONE Stop: 07/27/20 09:01 Last Admin: 07/27/20 09:24 Dose: 2.5 mg Documented by: - Exam General: Reports: Alert, Oriented, Cooperative, No Acute Distress Lungs: Reports: Clear to Auscultation, Normal Respiratory Effort, Decreased Breath Sounds Cardiovascular: Reports: Regular Rate, Irregular Rhythm, Murmurs GI/Abdominal Exam: Soft, Non-Tender, No Organomegaly, No Distention Extremities: Non-Tender, No Pedal Edema
[2020-07-27] MEDS: Furosemide 40 MG Tab PO SCH (12:55)
[2020-07-28] MEDS ORDERED: Levofloxacin 250 MG Tab PO SCH (09:00)
[2020-07-28] MEDS: Diltiazem 120 MG Cap.CD PO SCH (09:37)
[2020-07-28] MEDS: Metoprolol Succinate 50 MG Tab.ER PO SCH (09:38)
[2020-07-28] MEDS: Furosemide 40 MG Tab PO SCH ×2 (09:38→09:58)
[2020-07-28] MEDS: Lactobacillus Rhamnosus GG (Probiotic) Cap PO SCH ×2 (09:38→09:58)
[2020-07-28] MEDS ORDERED: Warfarin 2.5 MG Tab PO SCH (13:00)
== END 2020-07-28 11:50 | DRG 291 ==
LOC: JP.ED 17:54 → JP.ICU 19:43 → JP.MS 07-26 10:10
PROVIDERS: ADMIT Hospitalist; ATTEND Hospitalist
DX: I50.31 Acute diastolic (congestive) heart failure (principal); J18.9 Pneumonia, unspecified organism; Z68.43 Body mass index [BMI] 50.0-59.9, adult; N18.32 Chronic kidney disease, stage 3b; E66.01 Morbid (severe) obesity due to excess calories; R73.9 Hyperglycemia, unspecified; N18.30 Chronic kidney disease, stage 3 unspecified; I48.91 Unspecified atrial fibrillation; R77.8 Other specified abnormalities of plasma proteins; R79.89 Other specified abnormal findings of blood chemistry; E87.5 Hyperkalemia; I08.3 Combined rheumatic disorders of mitral, aortic and tricuspid valves; Z20.822 Contact with and (suspected) exposure to COVID-19; Z79.01 Long term (current) use of anticoagulants; Z79.899 Other long term (current) drug therapy; Z91.048 Other nonmedicinal substance allergy status; Z98.49 Cataract extraction status, unspecified eye
CPT/HCPCS: 36415; 71045; 71045-26; 71046; 71046-26; 71250; 74176; 80048; 81001; 82962; 83735; 84132; 84443; 84484; 85025; 85027; 85379; 85610; 86140; 87040; 93005; 93306; 96374; 97110-GP; 97162-GP; 97530-GP; 99283; 99285-25; A9270-GY; J1650; J1940; J1956; J3490; J7030; U0002

== ENCOUNTER 2020-08-10 14:51 | Emergency (ER) | payer MEDICARE, OTHER ==
--- NOTE | 2020-08-10 15:42 | EDM.PDOC ---
ED HPI GENERAL MEDICAL PROBLEM - General Chief Complaint: General Stated Complaint: FEET AND LEGS CELLULITIS Time Seen by Provider: 08/10/20 15:17 Source of Information: Reports: Patient, Family, Old Records, RN Notes Reviewed History Limitations: Reports: No Limitations - History of Present Illness INITIAL COMMENTS - FREE TEXT/NARRATIVE: 80-year-old female presents emergency department today for evaluation of weakness, she she is currently residing at a fdc in [place] for rehabilitation to the hospital here end of June discharge on July 27 for pneumonia combination atrial fibrillation with RVR she underwent multiple studies medication adjustments treat with antibiotics and discharged to fdc for rehab. She states the rehab has been going well and thought she was getting stronger. However she had a fall today when she was trying to transfer to the bathroom she admits she should have asked for help but did not and fell. She hit her head but denies any headache no bruising denies any other injury at this time other than the generalized weakness she has no complaints. is with her today he is not sure while she is here but she states the nurse at the [facility] was concerned she may have cellulitis in her lower extremity and increased edema. However review of fdc records show that she did have some excoriations with Esher and pedal edema on admit - Related Data Allergies Allergy/AdvReac Type Severity Reaction Status Date / Time metals Allergy Intermediate Rash Uncoded 08/10/20 15:03 Home Meds: Home Meds Lutein 20 mg PO DAILY 07/22/20 [History] Multivit with Iron,Minerals [Complete Senior] 1 tab PO DAILY 07/22/20 [History] Diltiazem [Cardizem CD] 120 mg PO DAILY #30 cap.cd 07/27/20 [Rx] Furosemide [Lasix] 40 mg PO DAILY #30 tablet 07/27/20 [Rx] Lactobacillus Rhamnosus GG [Culturelle] 1 cap PO BID #60 cap 07/27/20 [Rx] Metoprolol Succinate [Toprol XL 100mg] 100 mg PO DAILY 08/10/20 [History] Warfarin [Coumadin] 2.5 mg PO ASDIRECTED 08/10/20 [History] Warfarin [Coumadin] 3.75 mg PO ASDIRECTED 08/10/20 [History] metFORMIN [Glucophage] 500 mg PO DAILY 08/10/20 [History] Past Medical History HEENT History: Reports: Cataract Gastrointestinal History: Reports: Other (See Below) Other Gastrointestinal History: incontinence Genitourinary History: Reports: Urinary Incontinence 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 Social & Family History - Family History Family Medical History: No Pertinent Family History - Tobacco Use Tobacco Use Status *Q: Never Tobacco User - Caffeine Use Caffeine Use: Reports: None ED ROS GENERAL - Review of Systems Review Of Systems: See Below Constitutional: Reports: Weakness HEENT: Reports: No Symptoms Respiratory: Reports: No Symptoms Cardiovascular: Reports: No Symptoms GI/Abdominal: Reports: No Symptoms : Reports: No Symptoms Musculoskeletal: Reports: No Symptoms Neurological: Reports: No Symptoms ED EXAM, GENERAL - Physical Exam Exam: See Below Exam Limited By: No Limitations General Appearance: Alert, WD/WN, No Apparent Distress Respiratory/Chest: No Respiratory Distress, Lungs Clear, No Accessory Muscle Use, Chest Non-Tender, Crackles (Bases bilaterally) Cardiovascular: Irregularly Irregular GI/Abdominal: Soft, Non-Tender Extremities: Pedal Edema Neurological: Alert, Oriented, CN II-XII Intact, Normal Cognition Skin Exam: Cool, Erythema, Wound/Incision. No: Increased Warmth Course - Vital Signs Last Recorded V/S: Last Vital Signs Temp 96.7 F L 08/10/20 15:02 Pulse 69 08/10/20 16:26 Resp 15 08/10/20 15:02 BP 125/39 L 08/10/20 16:26 Pulse Ox 91 L 08/10/20 16:26 - Orders/Labs/Meds Orders: Active Orders 24 hr Category Date Time Status Peripheral IV Care [RC] . DIRECTED Care 08/10/20 17:01 Active UA W/MICROSCOPIC [URIN] Stat Lab 08/10/20 15:31 Ordered Sodium Chloride 0.9% [Saline Flush] Med 08/10/20 17:01 Active 10 ml FLUSH ASDIRECTED PRN Peripheral IV Insertion Adult [OM.PC] Urgent Oth 08/10/20 17:01 Ordered Medication Orders Sodium Chloride (Sodium Chloride 0.9% 10 Ml Syringe) 10 ml FLUSH ASDIRECTED PRN PRN Reason: Keep Vein Open Last Admin: 08/10/20 17:18 Dose: 10 ml Documented by: IVY Labs: Laboratory Tests 08/10/20 08/10/20 08/10/20 Range/Units 15:42 15:42 15:42 WBC 12.3 H (4.5-11.0) K/uL RBC 4.76 (3.30-5.50) M/uL Hgb 14.2 (12.0-15.0) g/dL Hct 45.0 (36.0-48.0) % MCV 95 (80-98) fL MCH 30 (27-31) pg MCHC 32 (32-36) % Plt Count 347 (150-400) K/uL Neut % (Auto) 78 H (36-66) % Lymph % (Auto) 14 L (24-44) % [place] % (Auto) 7 H (2-6) % Eos % (Auto) 1 L (2-4) % Baso % (Auto) 0 (0-1) % Sodium 146 (140-148) mmol/L Potassium 4.5 (3.6-5.2) mmol/L Chloride 102 (100-108) mmol/L Carbon Dioxide 33 H (21-32) mmol/L Anion Gap 15.5 H (5.0-14.0) mmol/L BUN 19 H D (7-18) mg/dL Creatinine 1.1 H (0.6-1.0) mg/dL Est Cr Clr Drug Dosing 31.72 mL/min Estimated GFR (MDRD) 48 L (>60) Glucose 192 H (74-106) mg/dL Lactic Acid 1.5 (0.4-2.0) mmol/L Calcium 9.3 (8.5-10.1) mg/dL NT-Pro-B Natriuret Pep (5-450) pg/mL 08/10/20 Range/Units 15:42 WBC (4.5-11.0) K/uL RBC (3.30-5.50) M/uL Hgb (12.0-15.0) g/dL Hct (36.0-48.0) % MCV (80-98) fL MCH (27-31) pg MCHC (32-36) % Plt Count (150-400) K/uL Neut % (Auto) (36-66) % Lymph % (Auto) (24-44) % [place] % (Auto) (2-6) % Eos % (Auto) (2-4) % Baso % (Auto) (0-1) % Sodium (140-148) mmol/L Potassium (3.6-5.2) mmol/L Chloride (100-108) mmol/L Carbon Dioxide (21-32) mmol/L Anion Gap (5.0-14.0) mmol/L BUN (7-18) mg/dL Creatinine (0.6-1.0) mg/dL Est Cr Clr Drug Dosing mL/min Estimated GFR (MDRD) (>60) Glucose (74-106) mg/dL Lactic Acid (0.4-2.0) mmol/L Calcium (8.5-10.1) mg/dL NT-Pro-B Natriuret Pep 7628 H (5-450) pg/mL Meds: Medications Generic Name Dose Route Start Last Admin Trade Name Freq PRN Reason Stop Dose Admin Sodium Chloride 10 ml 08/10/20 17:01 08/10/20 17:18 Sodium Chloride 0.9% 10 Ml Syringe FLUSH 10 ml ASDIRECTED PRN Administration Keep Vein Open Discontinued Medications Generic Name Dose Route Start Last Admin Trade Name Freq PRN Reason Stop Dose Admin Furosemide 40 mg 08/10/20 17:01 08/10/20 17:18 Furosemide 40 Mg/4 Ml Vial IVPUSH 08/10/20 17:02 40 mg ONETIME ONE Administration Departure - Departure Time of Disposition: 17:41 Disposition: Home, Self-Care 01 Condition: Poor Clinical Impression: Diastolic CHF Qualifiers: Heart failure chronicity: acute on chronic Qualified Code(s): I50.33 - Acute on chronic diastolic (congestive) heart failure - Discharge Information Instructions: Heart Failure, Self Care, [id number] Referrals: Dandre Vieira MD [Primary Care Provider] - Forms: ED Department Discharge Additional Instructions: Recommend increasing your Lasix dose to 40 mg in the morning and 20 mg in the afternoon, recommend follow-up with your primary care for further evaluation consider the possibility of home care since you are not returning to the fdc for rehab call or return to the emergency department worsening of symptoms Sepsis Event Note (ED) - Evaluation Sepsis Screening Result: No Definite Risk - Focused Exam Vital Signs: Vital Signs Temp Pulse Resp BP Pulse Ox 08/10/20 16:26 69 125/39 L 91 L 08/10/20 15:56 71 142/44 H 94 L 08/10/20 15:26 76 137/42 L 08/10/20 15:02 96.7 F L 67 15 151/59 H 94 L 08/10/20 15:01 96.7 F L 67 15 151/59 H 94 L - My Orders Last 24 Hours: My Active Orders 08/10/20 15:31 UA W/MICROSCOPIC [URIN] Stat 08/10/20 17:01 Peripheral IV Care [RC] . DIRECTED Sodium Chloride 0.9% [Saline Flush] 10 ml FLUSH ASDIRECTED PRN Peripheral IV Insertion Adult [OM.PC] Urgent - Assessment/Plan Last 24 Hours: My Active Orders 08/10/20 15:31 UA W/MICROSCOPIC [URIN] Stat 08/10/20 17:01 Peripheral IV Care [RC] . DIRECTED Sodium Chloride 0.9% [Saline Flush] 10 ml FLUSH ASDIRECTED PRN Peripheral IV Insertion Adult [OM.PC] Urgent Plan: Assessment Acuity = acute Site and laterality = exacerbation diastolic congestive heart failure Etiology = unknown Manifestations = dyspnea, weakness Location of injury = Home Lab values = WBC slightly elevated 12.3 consistent leukocytosis creatinine elevated 1.1 consistent chronic renal failure stage T3a BNP markedly elevated 7628 consistent with fluid overload type pattern Plan She was given 40 mg Lasix while in the emergency department, unfortunately the urine that was produced was mixed with stool. did talk to me he would like to take her home there then will return her to the fdc he would like to continue to care for her at home I told him that was his right and we would help him with transfer to the vehicle This note was dictated using [employer] voice recognition software please call with any questions on syntax or grammar.
[2020-08-10] MEDS ORDERED: Sodium Chloride 0.9% 10 ML Syringe FLUSH PRN (17:01)
[2020-08-10] MEDS ORDERED: Furosemide 40 MG/4 ML VIAL IVPUSH ONE (17:01)
== END 2020-08-10 18:07 | disposition home or self-care (01) ==
LOC: JP.ED 14:51
DX: I50.33 Acute on chronic diastolic (congestive) heart failure (principal); Z91.048 Other nonmedicinal substance allergy status; Z79.01 Long term (current) use of anticoagulants; Z79.899 Other long term (current) drug therapy
CPT/HCPCS: 36415; 80048; 81001; 83605; 83880; 85025; 96374; 99284; J1940